=== PATIENT | female | born 1960 | race Caucasian/White ===

== ENCOUNTER 2020-03-11 06:44 | Outpatient (CLI) | payer BC, MEDICARE, SELFPAY ==
--- NOTE | ~2020-03-11 | CT_ITS ---
EXAMINATION: CT abdomen pelvis wo/w con DATE: 03/11/2020 07:50 INDICATION: Microscopic hematuria. TECHNIQUE: Computed tomography (CT) of the abdomen and pelvis was performed without and with intraven ous contrast using a total of 130 mL Omnipaque-350 intravenous contrast with a double-bolus technique for simultaneous opacification of the renal parenchyma and renal collecting system. Automated exposu re control and iterative reconstruction technique were employed. The dose-length product was 1428.91 mGy-cm. COMPARISON: CT abdomen and pelvis 02/21/2019 FINDINGS: The visualized portions of the lung bases demonstrate minimal atelectasis. Calcified right lung nodul es are consistent with old granulomatous disease. No pleural effusion. The heart size is normal. No p ericardial effusion. There is a chronic 1.6 cm mass in right hepatic lobe with interrupted peripheral puddling of contrast, consistent with a hemangioma. There are cysts in the liver measuring up to 5 m m. There are changes of cholecystectomy. The spleen, pancreas, and adrenal glands are normal. There i s no urolithiasis. There are cysts in the kidneys measuring up to 17 mm on the left. The ureters are well opacified and are normal. The bladder is not well distended. There is diverticulosis of the colo n without evidence of diverticulitis. The appendix is normal. There are no pathologically enlarged ly mph nodes. There is no free intraperitoneal fluid. There is calcified atherosclerosis of the aorta an d many of the other arteries. There are small bilateral inguinal hernias containing fat. There is an electrode in left S3 neural foramen. There are changes of anterior and posterior fusion procedures at L4-L5. Pedicle screws have been removed from S1. There is moderate lumbar spondylosis. IMPRESSION: 1. No etiology for hematuria. Reviewed, dictated and finalized at location B.
--- NOTE | ~2020-03-11 | XR_ITS ---
EXAMINATION: XR abdomen/kub 1V DATE: 03/11/2020 07:09 INDICATION: Microscopic hematuria. TECHNIQUE: A supine view of the abdomen on 2 radiographs was obtained. COMPARISON: CT abdomen and pelvis 03/11/2020 FINDINGS: There are no dilated loops of bowel. There is no urolithiasis. There are changes of anterio r and posterior fusion procedures at L4-L5. There is an electrode in left S3 neural foramen. There ar e phleboliths in the pelvis. IMPRESSION: 1. No urolithiasis. Reviewed, dictated and finalized at location B. IMPRESSION: 1. No urolithiasis.
[2020-03-11 07:27] LABS: Estimated Glomerular Filt Rate > 60
== END 2020-03-11 06:45 | disposition home or self-care (01) ==
PROVIDERS: Visit Provider Urology
DX: R31.29 Other microscopic hematuria (principal)
CPT/HCPCS: 74018; 74178; Q9967

== ENCOUNTER → 2020-05-02 07:16 | Outpatient (CLI) | payer BC, MEDICARE, SELFPAY ==
--- NOTE | ~2020-05-02 | MM_ITS ---
EXAMINATION: MM screening [facility] BI w david HISTORY: Screening mammogram TECHNIQUE: Craniocaudal and mediolateral oblique 3-D tomosynthesis images were obtained and synthetic 2-D images were generated. CAD analysis was submitted and interpreted. COMPARISON: 12/05/2018 bilateral digital screening mammogram 05/24/2017 and 11/21/2016 diagnostic left digital mammogram and limited left breast ultrasound 11/12/2016, 10/25/2015 bilateral digital screening mammogram examinations BREAST PARENCHYMAL COMPOSITION: There are scattered areas of fibroglandular density. FINDINGS: There is no evidence of suspicious mass, calcification, or architectural distortion to sugg est malignancy in either breast. There has been no suspicious interval change. IMPRESSION: 1. No mammographic evidence of malignancy. 2. Recommend routine screening mammography in one year. BI-RADS Category 1: Negative Reviewed, dictated and finalized at location A.
== END ==
PROVIDERS: PCP Family Medicine Sports Medicine; Visit Provider Obstetrics & Gynecology Gynecology
DX: Z12.31 Encounter for screening mammogram for malignant neoplasm of breast (principal)
CPT/HCPCS: 77063; 77067

== ENCOUNTER 2020-05-30 02:27 | Outpatient (CLI) | payer BC, MEDICARE, SELFPAY ==
[2020-05-30 21:22] LABS: SARS-CoV-2 RNA PCR Negative
== END 2020-05-30 02:28 | disposition home or self-care (01) ==
LOC: ANHCOVIDDT 02:28
PROVIDERS: PCP Family Medicine Sports Medicine; Visit Provider Internal Medicine Gastroenterology
DX: Z01.818 Encounter for other preprocedural examination (principal); Z20.828 Contact with and (suspected) exposure to other viral communicable diseases
CPT/HCPCS: 87635; C9803; U0003

== ENCOUNTER 2020-06-02 01:25 | Day surgery (SDC) | payer BC, MEDICARE, SELFPAY ==
[2020-05-26 14:58] VITALS: BMI 27.8
[2020-06-02 07:47] VITALS: BMI 28.9
[2020-06-02 07:51] VITALS: BP 133/73; PULSE 82; RESP 16; TEMP 36.2; O2SAT 99
[2020-06-02] MEDS: LACTATED RINGERS 1,000 ML 150 ML IV CONT (07:58)
--- NOTE | 2020-06-02 08:02 | PM.IMHP ---
H&P: HPI History of Present Illness Date/Time: 06/02/20 08:02 Chief complaint: GERD Narrative: Reason for visit is EGD. This very pleasant lady seen in consultation at the request of the primary physician. Impression: Here at very pleasant lady with a history of reflux disease and is status post Sharlene fundoplication. She does have upper abdominal pain. Evaluate for underlying peptic ulcer disease and reflux esophagitis. Patient reports rectal bleeding. This may be. This may be perianal in origin. Underlying inflammatory neoplastic disease should be excluded. Recommendation: EGD. Colonoscopy is scheduled. History: This very pleasant lady has a history peptic ulcer disease and gastroesophageal reflux disease. She is status post laparoscopic Sharlene fundoplication. The patient had been complaining of increasing upper abdominal pain and reflux. Since beginning the omeprazole and discontinue NSAIDs her symptoms have improved. She does report rectal bleeding of bright red blood per rectum. She has previously had an EGD and a colonoscopy in the past. She is here for EGD to assess for lying erosive esophagitis and peptic ulcer disease. Patient does have a history of COPD with shortness of breath and dyspnea exertion. Physical examination: General: very pleasant patient in no acute distress. HEENT: Head was normocephalic sclerae is clear mouth without masses neck was supple. Heart: Rate rhythm regular without S3 or S4. Lungs: Decreased breath sounds bilaterally. Abdomen: Soft with no guarding or rigidity. Bowel sounds were active. Neurologic: Cranial nerves 2 through 12 intact. No focal defects. No clonus. Musculoskeletal system: Revealed no joint tenderness or swelling no muscle atrophy. Extremities: Reveal no significant edema. Skin: Warm and dry with normal turgor. Mental status: intact. Patient is alert and oriented. Review of Systems Review of Systems: All systems reviewed & are unremarkable except as noted in HPI and below PMFSH Past Medical History Medical History Allergic rhinitis Asthma Asthma-COPD overlap syndrome Chronic sinusitis with recurrent bronchitis COPD (chronic obstructive pulmonary disease) DDD (degenerative disc disease) Deviated septum GERD (gastroesophageal reflux disease) History of tobacco use Surgical History Surgical History (Updated 06/02/20 @ 08:02 by Joseph Zimmerman DO) H/O colonoscopy H/O esophagogastroduodenoscopy History of Shalrene fundoplication History of sinus surgery History of total hysterectomy Social History Social History Smoking packs per day: 1 Smoking cigarettes per day: 20.0 Smoking status: Former smoker Smoking end date: 07/15/02 Alcohol intake: former Alcohol use details: 1-2 GLASSES PER WEEK NOW, FORMER DRINKER Substance use: never Substance use type: marijuana and other Other substance usage details: CBD OIL Last use: DAILY Living arrangements: with family Spiritual care concerns: No Meds Home Medications and Allergies Home Medications Medication Instructions Recorded Confirmed Type diphenhydramine HCl 12.5 mg/5 mL 12.5 mg PO Q8H PRN 03/23/20 06/02/20 History oral liquid albuterol sulfate 90 mcg/actuation 2 puff INHALATION Q4-6H PRN 30 03/24/20 06/02/20 Rx aerosol inhaler Days #8.5 gm fluticasone fur. 100 mcg-umeclid 1 inhalation INHALATION Q24H 03/24/20 06/02/20 Rx 62.5 mcg-vilant 25 mcg Days #60 each inhalat.powder fluticasone furoate 27.5 1 spray INTRANASAL DAILY PRN 90 05/17/20 06/02/20 Rx mcg/actuation nasal Days #47.4 ml spray,suspension fluticasone furoate 27.5 2 spray INTRANASAL DAILY 30 Days 05/19/20 06/02/20 Rx mcg/actuation nasal #9.1 ml spray,suspension PreserVision AREDS-2 2 tablet PO DAILY 05/26/20 06/02/20 History calcium carbonate-vitamin D3 2 tablet PO DAILY 05/26/20 06/02/20 History [Caltrate 600 plus D] conjugated estrogens [
--- NOTE | 2020-06-02 08:26 | WPDANESEPPF ---
Anes - Initial Pre Proc Eval Procedure: Operation Date: 06/02/20 09:00 Proposed Procedures p Esophagogastroduodenoscopy - Joseph Zimmerman DO Date/Time: 06/02/20 08:26 Surgeon: Joseph Zimmerman DO Pre Op Diagnosis: GERD Patient Data Age: 60 Gender: F Height: 5 ft 6 in Weight: 81.4 kg Last Vital Signs Temp 97.1 F L 06/02/20 07:51 Pulse 82 06/02/20 07:51 Resp 16 06/02/20 07:51 BP 133/73 06/02/20 07:51 Pulse Ox 99 06/02/20 07:51 Allergies Allergy/AdvReac Type Severity Reaction Status Date / Time codeine Allergy Unknown Itching Verified 06/02/20 07:46 Sulfa (Sulfonamide Allergy Unknown Itching Verified 06/02/20 07:46 Antibiotics) Home Medications Medication Instructions Recorded Confirmed Type diphenhydramine HCl 12.5 mg/5 mL 12.5 mg PO Q8H PRN 03/23/20 06/02/20 History oral liquid albuterol sulfate 90 mcg/actuation 2 puff INHALATION Q4-6H PRN 30 03/24/20 06/02/20 Rx aerosol inhaler Days #8.5 gm fluticasone fur. 100 mcg-umeclid 1 inhalation INHALATION Q24H 30 03/24/20 06/02/20 Rx 62.5 mcg-vilant 25 mcg Days #60 each inhalat.powder fluticasone furoate 27.5 1 spray INTRANASAL DAILY PRN 90 05/17/20 06/02/20 Rx mcg/actuation nasal Days #47.4 ml spray,suspension fluticasone furoate 27.5 2 spray INTRANASAL DAILY 30 Days 05/19/20 06/02/20 Rx mcg/actuation nasal #9.1 ml spray,suspension PreserVision AREDS-2 2 tablet PO DAILY 05/26/20 06/02/20 History calcium carbonate-vitamin D3 2 tablet PO DAILY 05/26/20 06/02/20 History [Caltrate 600 plus D] conjugated estrogens [Premarin] 1 applic VAGINAL DAILY 05/26/20 06/02/20 History gabapentin [Neurontin] 300 mg PO BID 05/26/20 06/02/20 History hydrochlorothiazide 12.5 mg PO DAILY 05/26/20 06/02/20 History magnesium carbonate 250 mg PO DAILY 05/26/20 06/02/20 History omeprazole 40 mg PO DAILY 05/26/20 06/02/20 History terbinafine 1 ea TOPICAL DAILY 05/26/20 06/02/20 History terbinafine HCl 250 mg PO DAILY 05/26/20 06/02/20 History valacyclovir 500 mg PO DAILY 05/26/20 06/02/20 History Patient hx anesthesia problems: none Family hx anesthesia problems: none [facility] Past Medical History Medical History Allergic rhinitis Asthma Asthma-COPD overlap syndrome Chronic sinusitis with recurrent bronchitis COPD (chronic obstructive pulmonary disease) DDD (degenerative disc disease) Deviated septum GERD (gastroesophageal reflux disease) History of tobacco use Surgical History Surgical History (Updated 06/02/20 @ 08:02 by Joseph Zimmerman DO) H/O colonoscopy H/O esophagogastroduodenoscopy History of Sharlene fundoplication History of sinus surgery History of total hysterectomy Social History Social History Smoking packs per day: 1 Smoking cigarettes per day: 20.0 Smoking status: Former smoker Smoking end date: 07/15/02 Alcohol intake: former Alcohol use details: 1-2 GLASSES PER WEEK NOW, FORMER DRINKER Substance use: never Substance use type: marijuana and other Other substance usage details: CBD OIL Last use: DAILY Living arrangements: with family Spiritual care concerns: No Anes - Eval Final PreProcedure Day of Procedure 06/02/20 08:26 Patient weight: overweight Heart: regular rate and rhythm Lungs: clear to auscultation Airway: Mallampati scale class II Neurological: alert and oriented Last oral intake: >/= 8 hours ASA classification: III Emergent: no Anesthetic plan: proceed Anesthesia type and monitoring: general GIVS and standard monitoring Informed Consent: The patient's anesthetic plan and its attendant risks and benefits were discussed with the patient/family/POA. Questions were solicited and answers provided to the satisfaction of the patient/family/POA.
[2020-06-02 08:52] VITALS: BP 103/54; PULSE 75; RESP 21; O2SAT 99
[2020-06-02 09:02] VITALS: BP 117/69; PULSE 78; RESP 20; O2SAT 99
[2020-06-02 09:12] VITALS: BP 128/75; PULSE 75; RESP 16; O2SAT 100
[2020-06-02 09:22] VITALS: BP 140/74; PULSE 72; RESP 17; O2SAT 100
== END 2020-06-02 09:30 | disposition home or self-care (01) ==
PROVIDERS: PCP Family Medicine Sports Medicine; Visit Provider Internal Medicine Gastroenterology
PROC: 0DJ08ZZ Inspection of Upper Intestinal Tract, Via Natural or Artificial Opening Endoscopic (ICD-10-PCS; CPT 43235; principal; 2020-06-02 09:00)
DX: R10.10 Upper abdominal pain, unspecified (principal); K21.9 Gastro-esophageal reflux disease without esophagitis; Z87.11 Personal history of peptic ulcer disease; Z98.84 Bariatric surgery status; J44.9 Chronic obstructive pulmonary disease, unspecified; Z87.891 Personal history of nicotine dependence; F12.90 Cannabis use, unspecified, uncomplicated
CPT/HCPCS: 43239; 87081; J2704; J7120

== ENCOUNTER 2020-06-20 01:56 | Outpatient (CLI) | payer BC, MEDICARE, SELFPAY ==
[2020-06-20 18:52] LABS: SARS-CoV-2 RNA PCR Negative
== END 2020-06-20 01:57 | disposition home or self-care (01) ==
LOC: ANHCOVIDDT 01:56
PROVIDERS: PCP Family Medicine Sports Medicine; Visit Provider Internal Medicine Gastroenterology
DX: Z01.818 Encounter for other preprocedural examination (principal); Z20.828 Contact with and (suspected) exposure to other viral communicable diseases
CPT/HCPCS: 87635; C9803; U0003

== ENCOUNTER 2020-06-23 00:17 | Day surgery (SDC) | payer BC, MEDICARE, SELFPAY ==
[2020-06-15 13:58] VITALS: BMI 28.4
--- NOTE | 2020-06-22 13:03 | WPDANESEPPF ---
Anes - Initial Pre Proc Eval Procedure: Operation Date: 06/23/20 09:00 Proposed Procedures p Colonoscopy - Joseph Zimmerman DO Date/Time: 06/22/20 13:03 Surgeon: Joseph Zimmerman DO Pre Op Diagnosis: IBS/ Constipation Patient Data Age: 60 Gender: F Height: 1.68 m Weight: 80 kg Allergies Allergy/AdvReac Type Severity Reaction Status Date / Time codeine Allergy Unknown Itching Verified 06/23/20 07:44 Sulfa (Sulfonamide Allergy Unknown Itching Verified 06/23/20 07:44 Antibiotics) Home Medications Medication Instructions Recorded Confirmed Type diphenhydramine HCl 12.5 mg/5 mL 12.5 mg PO Q8H PRN 03/23/20 06/15/20 History oral liquid albuterol sulfate 90 mcg/actuation 2 puff INHALATION Q4-6H PRN 30 03/24/20 06/23/20 Rx aerosol inhaler Days #8.5 gm fluticasone fur. 100 mcg-umeclid 1 inhalation INHALATION Q24H 30 03/24/20 06/23/20 Rx 62.5 mcg-vilant 25 mcg Days #60 each inhalat.powder fluticasone furoate 27.5 2 spray INTRANASAL DAILY 30 Days 05/19/20 06/23/20 Rx mcg/actuation nasal #9.1 ml spray,suspension PreserVision AREDS-2 2 tablet PO DAILY 05/26/20 06/23/20 History calcium carbonate-vitamin D3 2 tablet PO DAILY 05/26/20 06/23/20 History [Caltrate 600 plus D] conjugated estrogens [Premarin] 1 applic VAGINAL DAILY 05/26/20 06/15/20 History gabapentin [Neurontin] 300 mg PO BID 05/26/20 06/23/20 History hydrochlorothiazide 12.5 mg PO DAILY 05/26/20 06/23/20 History magnesium carbonate 250 mg PO DAILY 05/26/20 06/23/20 History omeprazole 40 mg PO DAILY 05/26/20 06/23/20 History terbinafine 1 ea TOPICAL DAILY 05/26/20 06/15/20 History terbinafine HCl 250 mg PO DAILY 05/26/20 06/15/20 History valacyclovir 500 mg PO DAILY 05/26/20 06/15/20 History Cbd Oil DAILY 06/15/20 History acetaminophen [Tylenol] 650 mg PO Q4-6H PRN 06/15/20 06/15/20 History denosumab [Prolia] 60 mg SUBCUT [id number] 06/15/20 06/15/20 History loratadine [Claritin] 10 mg PO DAILY PRN 06/15/20 06/23/20 History multivitamin [Daily Multivitamin] 1 tablet PO DAILY 06/15/20 06/23/20 History Patient hx anesthesia problems: none Family hx anesthesia problems: none PMFSH Past Medical History Medical History (Updated 06/22/20 @ 13:05 by John Welsh MD) Allergic rhinitis Asthma Asthma-COPD overlap syndrome Bipolar 1 disorder Chronic sinusitis with recurrent bronchitis COPD (chronic obstructive pulmonary disease) DDD (degenerative disc disease) Depression Deviated septum GERD (gastroesophageal reflux disease) History of tobacco use HTN (hypertension) LUIZ (obstructive sleep apnea) Surgical History Surgical History (Updated 06/02/20 @ 08:02 by Joseph Zimmerman DO) H/O colonoscopy H/O esophagogastroduodenoscopy History of Sharlene fundoplication History of sinus surgery History of total hysterectomy Social History Social History Smoking packs per day: 1 Smoking cigarettes per day: 20.0 Smoking status: Former smoker Smoking end date: 07/15/02 Alcohol intake: former Substance use: never Substance use type: marijuana and other Other substance usage details: CBD OIL Last use: DAILY Living arrangements: with family Spiritual care concerns: No Anes - Eval Final PreProcedure Day of Procedure 06/22/20 13:03 Patient weight: obese Heart: regular rate and rhythm Lungs: clear to auscultation and normal air movement Airway: Mallampati scale class II Neurological: alert and oriented Last oral intake: >/= 8 hours ASA classification: III Emergent: no Anesthetic plan: proceed Anesthesia type and monitoring: general GIVS Informed Consent: The patient's anesthetic plan and its attendant risks and benefits were discussed with the patient/family/POA. Questions were solicited and answers provided to the satisfaction of the patient/family/POA.
[2020-06-23 07:39] VITALS: BP 120/69; PULSE 99; RESP 22; TEMP 36.8; O2SAT 100; BMI 28.3
[2020-06-23 07:47] VITALS: BMI 28.3
[2020-06-23] MEDS: LACTATED RINGERS 1,000 ML 150 ML IV CONT (07:55)
--- NOTE | 2020-06-23 09:22 | WPDHPUPDATE1 ---
History and Physical Update Update Date/Time: 06/23/20 09:22 History and Physical has been reviewed, including an updated exam of the patient. There are NO changes in the patient's condition. Risks, benefits, and alternatives have been discussed and questions answered. Patient agrees to proceed with procedure.
--- NOTE | 2020-06-23 09:48 | SUR.OPER ---
RESOLUTION CLIP X6. LOT [id number] EXP , LOT [id number] EXP LOT [id number] EXP (X4)
[2020-06-23 10:12] VITALS: BP 112/65; PULSE 81; RESP 19; O2SAT 96
[2020-06-23 10:22] VITALS: BP 126/65; PULSE 82; RESP 27; O2SAT 100
[2020-06-23 10:32] VITALS: BP 100/65; PULSE 73; RESP 15; O2SAT 100
== END 2020-06-23 10:47 | disposition home or self-care (01) ==
PROVIDERS: PCP Family Medicine Sports Medicine; Visit Provider Internal Medicine Gastroenterology
PROC: 0DJD8ZZ Inspection of Lower Intestinal Tract, Via Natural or Artificial Opening Endoscopic (ICD-10-PCS; CPT 45378; principal; 2020-06-23 09:00)
DX: K57.30 Diverticulosis of large intestine without perforation or abscess without bleeding (principal); D12.4 Benign neoplasm of descending colon; D12.2 Benign neoplasm of ascending colon; K64.8 Other hemorrhoids; K58.2 Mixed irritable bowel syndrome; I10 Essential (primary) hypertension; J44.9 Chronic obstructive pulmonary disease, unspecified; G47.33 Obstructive sleep apnea (adult) (pediatric); K21.9 Gastro-esophageal reflux disease without esophagitis; F31.9 Bipolar disorder, unspecified; Z87.891 Personal history of nicotine dependence; F12.90 Cannabis use, unspecified, uncomplicated; E66.9 Obesity, unspecified; Z68.28 Body mass index [BMI] 28.0-28.9, adult
CPT/HCPCS: 45380; 45385; 88305; J2704; J7120

== ENCOUNTER 2020-07-25 08:10 | Outpatient (CLI) | payer BC, MEDICARE, SELFPAY ==
--- NOTE | ~2020-07-25 | CT_ITS ---
EXAMINATION: CT abdomen pelvis w con INDICATION: Adenomatous polyp of the colon TECHNIQUE: Computed tomographic images of the abdomen and pelvis were obtained after the administrati on of 100 cc of Omnipaque 350 intravenous contrast. The dose-length product (DLP) was 601.46 mGy-cm. Automated exposure control and iterative reconstruction technique were employed. COMPARISON: 03/11/2020 FINDINGS: The lung bases are clear. The heart size is normal. The gallbladder is surgically absent. A 1.6 cm hemangioma is noted in the right hepatic lobe. Cysts of the liver measure up to 5 mm. The spl een, pancreas, and adrenal glands are normal. There is a 1.7 cm cyst of the left kidney. The right ki dney is unremarkable. There is calcified atherosclerosis of the aorta and many of the other arteries. There is no free intraperitoneal gas or evidence of bowel obstruction. No pathologically enlarged ab dominal or pelvic lymph nodes are identified. Biopsy clips are noted at the hepatic flexure and in th e ascending colon. The appendix is normal. There are changes of anterior and posterior fusion at L4-5 . A bone graft harvest site is noted in the right sacrum. IMPRESSION: 1. Postbiopsy changes of the colon without acute findings. Reviewed, dictated and finalized at location A. [employer]ICAL SERVICES REPRESENTATIVE
[2020-07-25 08:47] LABS: Estimated Glomerular Filt Rate > 60
== END 2020-07-25 08:11 | disposition home or self-care (01) ==
PROVIDERS: PCP Family Medicine Sports Medicine; Visit Provider Internal Medicine Gastroenterology
DX: D12.5 Benign neoplasm of sigmoid colon (principal); R10.9 Unspecified abdominal pain
CPT/HCPCS: 74177; Q9967

== ENCOUNTER → 2020-08-20 01:04 | Outpatient (CLI) | payer BC, MEDICARE, SELFPAY ==
[2020-08-21 00:21] LABS: SARS-CoV-2 RNA PCR Negative
== END ==
PROVIDERS: PCP Family Medicine Sports Medicine; Visit Provider Internal Medicine Gastroenterology
DX: Z01.812 Encounter for preprocedural laboratory examination (principal); Z20.822 Contact with and (suspected) exposure to COVID-19
CPT/HCPCS: C9803; U0003; U0005

== ENCOUNTER 2020-08-24 00:31 | Day surgery (SDC) | payer BC, MEDICARE, SELFPAY ==
[2020-08-04 14:26] VITALS: BMI 28.3
[2020-08-24 10:41] VITALS: BP 109/57; PULSE 98; RESP 16; TEMP 36.6; O2SAT 100
[2020-08-24] MEDS: LACTATED RINGERS 1,000 ML 150 ML IV CONT (10:48)
--- NOTE | 2020-08-24 10:55 | WPDANESEPPF ---
Anes - Initial Pre Proc Eval Procedure: Operation Date: 08/24/20 12:00 Proposed Procedures p Colonoscopy - Joseph Zimmerman DO Date/Time: 08/24/20 10:55 Surgeon: Joseph Zimmerman DO Pre Op Diagnosis: Adenomas Polyp Of Colon, Abdomnal Pain Patient Data Age: 60 Gender: F Height: 5 ft 6 in Weight: 78.6 kg Last Vital Signs Temp 36.6 C 08/24/20 10:41 Pulse 98 08/24/20 10:41 Resp 16 08/24/20 10:41 BP 109/57 L 08/24/20 10:41 Pulse Ox 100 08/24/20 10:41 Allergies Allergy/AdvReac Type Severity Reaction Status Date / Time codeine Allergy Unknown Itching Verified 08/24/20 10:37 Sulfa (Sulfonamide Allergy Unknown Itching Verified 08/24/20 10:37 Antibiotics) Home Medications Medication Instructions Recorded Confirmed Type diphenhydramine HCl 12.5 mg/5 mL 12.5 mg PO Q8H PRN 03/23/20 08/24/20 History oral liquid albuterol sulfate 90 mcg/actuation 2 puff INHALATION Q4-6H PRN 30 03/24/20 08/24/20 Rx aerosol inhaler Days #8.5 gm fluticasone fur. 100 mcg-umeclid 1 inhalation INHALATION Q24H 30 03/24/20 08/24/20 Rx 62.5 mcg-vilant 25 mcg Days #60 each inhalat.powder fluticasone furoate 27.5 2 spray INTRANASAL DAILY 30 Days 05/19/20 08/24/20 Rx mcg/actuation nasal #9.1 ml spray,suspension PreserVision AREDS-2 2 tablet PO DAILY 05/26/20 08/24/20 History calcium carbonate-vitamin D3 2 tablet PO DAILY 05/26/20 08/24/20 History [Caltrate 600 plus D] conjugated estrogens [Premarin] 1 applic VAGINAL WEEKLY 05/26/20 08/24/20 History gabapentin [Neurontin] 300 mg PO BID 05/26/20 08/24/20 History hydrochlorothiazide 12.5 mg PO DAILY 05/26/20 08/24/20 History magnesium carbonate 250 mg PO DAILY 05/26/20 08/24/20 History omeprazole 40 mg PO DAILY 05/26/20 08/24/20 History terbinafine 1 ea TOPICAL DAILY 05/26/20 08/24/20 History terbinafine HCl 250 mg PO DAILY 05/26/20 08/24/20 History valacyclovir 500 mg PO DAILY 05/26/20 08/24/20 History Cbd Oil DAILY 06/15/20 History acetaminophen [Tylenol] 650 mg PO Q4-6H PRN 06/15/20 08/24/20 History denosumab [Prolia] 60 mg SUBCUT [id number] 06/15/20 08/24/20 History loratadine [Claritin] 10 mg PO DAILY PRN 06/15/20 08/24/20 History multivitamin [Daily Multivitamin] 1 tablet PO DAILY 06/15/20 08/24/20 History Patient hx anesthesia problems: none Family hx anesthesia problems: none PMFSH Past Medical History Medical History Allergic rhinitis Asthma Asthma-COPD overlap syndrome Bipolar 1 disorder Chronic sinusitis with recurrent bronchitis COPD (chronic obstructive pulmonary disease) DDD (degenerative disc disease) Depression Deviated septum GERD (gastroesophageal reflux disease) History of tobacco use HTN (hypertension) LUIZ (obstructive sleep apnea) Surgical History Surgical History H/O colonoscopy H/O esophagogastroduodenoscopy History of Sharlene fundoplication History of sinus surgery History of total hysterectomy Social History Social History Smoking packs per day: 1 Smoking cigarettes per day: 20.0 Years smoked: 32 Smoking pack-years: 32.00 Smoking status: Former smoker Tobacco type: cigarettes Smoking end date: 07/15/02 Alcohol intake: former Substance use: never Substance use type: marijuana and other Other substance usage details: CBD OIL Last use: DAILY Living arrangements: with family Gender identity (if verbalized by the patient): Female Spiritual care concerns: No Anes - Eval Final PreProcedure Day of Procedure 08/24/20 10:55 Patient weight: overweight Heart: regular rate and rhythm Lungs: clear to auscultation Airway: Mallampati scale class II Neurological: alert and oriented Last oral intake: >/= 8 hours ASA classification: IV Emergent: no Anesthetic plan: proceed Anesthesia type and monitoring: general GIVS and standard manish
--- NOTE | 2020-08-24 12:12 | WPDGICN ---
GI Consult Note Consult date/time: 08/24/20 12:12 HPI: Reason for visit is colonoscopy. This very pleasant lady seen in consultation request of the primary physician. Impression: Very pleasant lady has a history of multiple adenomatous polyps. She is here for follow-up colonoscopy to assess the need for further polypectomy. She does have a large polyp that needs to be excised. Recommendation: Colonoscopy. History: This very pleasant lady has multiple adenomatous polyps. She underwent multiple polypectomies. A 1.5-2 cm polyp is Still requiring removal. She is here for follow-up colonoscopy. GI review systems is negative. Physical examination: General: very pleasant patient in no acute distress. HEENT: Head was normocephalic sclerae is clear mouth without masses neck was supple. Heart: Rate rhythm regular without S3 or S4. Lungs: CTA. Abdomen: Soft with no guarding or rigidity. Bowel sounds were active. Neurologic: Cranial nerves 2 through 12 intact. No focal defects. No clonus. Musculoskeletal system: Revealed no joint tenderness or swelling no muscle atrophy. Extremities: Reveal no significant edema. Skin: Warm and dry with normal turgor. Mental status: intact. Patient is alert and oriented. Review of Systems Review of Systems: All systems reviewed & are unremarkable except as noted in HPI and below PMFSH Past Medical History Medical History (Updated 08/24/20 @ 12:14 by Joseph Zimmerman DO) Adenomatous colon polyp Allergic rhinitis Asthma Asthma-COPD overlap syndrome Bipolar 1 disorder Chronic sinusitis with recurrent bronchitis COPD (chronic obstructive pulmonary disease) DDD (degenerative disc disease) Depression Deviated septum GERD (gastroesophageal reflux disease) History of tobacco use HTN (hypertension) LUIZ (obstructive sleep apnea) Surgical History Surgical History H/O colonoscopy H/O esophagogastroduodenoscopy History of Sharlene fundoplication History of sinus surgery History of total hysterectomy Social History Social History Smoking packs per day: 1 Smoking cigarettes per day: 20.0 Years smoked: 32 Smoking pack-years: 32.00 Smoking status: Former smoker Tobacco type: cigarettes Smoking end date: 07/15/02 Alcohol intake: former Substance use: never Substance use type: marijuana and other Other substance usage details: CBD OIL Last use: DAILY Living arrangements: with family Gender identity (if verbalized by the patient): Female Spiritual care concerns: No Meds Home Medications and Allergies Home Medications Medication Instructions Recorded Confirmed Type diphenhydramine HCl 12.5 mg/5 mL 12.5 mg PO Q8H PRN 03/23/20 08/24/20 History oral liquid albuterol sulfate 90 mcg/actuation 2 puff INHALATION Q4-6H PRN 03/24/20 08/24/20 Rx aerosol inhaler Days #8.5 gm fluticasone fur. 100 mcg-umeclid 1 inhalation INHALATION Q24H 30 03/24/20 08/24/20 Rx 62.5 mcg-vilant 25 mcg Days #60 each inhalat.powder fluticasone furoate 27.5 2 spray INTRANASAL DAILY 30 Days 05/19/20 08/24/20 Rx mcg/actuation nasal #9.1 ml spray,suspension PreserVision AREDS-2 2 tablet PO DAILY 05/26/20 08/24/20 History calcium carbonate-vitamin D3 2 tablet PO DAILY 05/26/20 08/24/20 History [Caltrate 600 plus D] conjugated estrogens [Premarin] 1 applic VAGINAL WEEKLY 05/26/20 08/24/20 History gabapentin [Neurontin] 300 mg PO BID 05/26/20 08/24/20 History hydrochlorothiazide 12.5 mg PO DAILY 05/26/20 08/24/20 History magnesium carbonate 250 mg PO DAILY 05/26/20 08/24/20 History omeprazole 40 mg PO DAILY 05/26/20 08/24/20 History terbinafine 1 ea TOPICAL DAILY 05/26/20 08/24/20 History terbinafine HCl 250 mg PO DAILY 05/26/20 08/24/20 History valacyclovir 500 mg PO DAILY 05/26/20 08/24/20 History Cbd Oil DAILY 06/15/20 History acetamin
[2020-08-24 13:14] VITALS: BP 115/66; PULSE 80; RESP 21; O2SAT 100
[2020-08-24 13:24] VITALS: BP 117/67; PULSE 69; RESP 22; O2SAT 100
[2020-08-24 13:34] VITALS: BP 123/63; PULSE 70; RESP 21; O2SAT 98
== END 2020-08-24 13:55 | disposition home or self-care (01) ==
PROVIDERS: PCP Family Medicine Sports Medicine; Visit Provider Internal Medicine Gastroenterology
PROC: 0DJD8ZZ Inspection of Lower Intestinal Tract, Via Natural or Artificial Opening Endoscopic (ICD-10-PCS; CPT 45378; principal; 2020-08-24 12:00)
DX: Z09 Encounter for follow-up examination after completed treatment for conditions other than malignant neoplasm (principal); D12.4 Benign neoplasm of descending colon; D12.2 Benign neoplasm of ascending colon; D12.3 Benign neoplasm of transverse colon; K63.5 Polyp of colon; K64.8 Other hemorrhoids; I10 Essential (primary) hypertension; J44.9 Chronic obstructive pulmonary disease, unspecified; F31.9 Bipolar disorder, unspecified; K21.9 Gastro-esophageal reflux disease without esophagitis; G47.33 Obstructive sleep apnea (adult) (pediatric); Z87.891 Personal history of nicotine dependence; F12.90 Cannabis use, unspecified, uncomplicated
CPT/HCPCS: 45385; 45381; 88305; J2704; J7120

== ENCOUNTER 2020-09-14 11:26 | Outpatient (CLI) | payer BC, MEDICARE, SELFPAY ==
--- NOTE | ~2020-09-14 | XR_ITS ---
EXAMINATION: XR chest 2V DATE: 09/14/2020 13:28 INDICATION: Shortness of breath. TECHNIQUE: Frontal and lateral views of the chest were obtained. COMPARISON: Chest 2 views 08/30/2010, CT abdomen and pelvis 07/25/2020 FINDINGS: A calcified right lung nodule is consistent with old granulomatous disease. No pleural effu kristen or pneumothorax. The heart size is normal. There are surgical clips in the abdomen. IMPRESSION: 1. No acute cardiopulmonary disease. Reviewed, dictated and finalized at location A. D DIRECTOR
== END 2020-09-14 11:27 | disposition home or self-care (01) ==
LOC: ANHIMG 11:35
PROVIDERS: PCP Family Medicine Sports Medicine; Visit Provider Nurse Practitioner Family
DX: R06.02 Shortness of breath (principal)
CPT/HCPCS: 71046

== ENCOUNTER → 2020-09-15 06:56 | Outpatient (CLI) | payer BC, MEDICARE, SELFPAY ==
[2020-09-15 23:26] LABS: SARS-CoV-2 RNA PCR Negative
== END ==
PROVIDERS: PCP Family Medicine Sports Medicine; Visit Provider Nurse Practitioner Family
DX: R68.89 Other general symptoms and signs (principal); Z20.822 Contact with and (suspected) exposure to COVID-19
CPT/HCPCS: C9803; U0003; U0005

== ENCOUNTER → 2021-06-10 09:45 | Outpatient (CLI) | payer BC, MEDICARE, SELFPAY ==
--- NOTE | ~2021-06-10 | MM_ITS ---
EXAMINATION: MM screening salomon BI w david HISTORY: Screening mammogram TECHNIQUE: Craniocaudal and mediolateral oblique 3-D tomosynthesis images were obtained and synthetic 2-D images were generated. CAD analysis was submitted and interpreted. COMPARISON: 05/02/2020, 12/01/2018 bilateral screening mammogram examinations BREAST PARENCHYMAL COMPOSITION: There are scattered areas of fibroglandular density. FINDINGS: There is no evidence of suspicious mass, calcification, or architectural distortion to sugg est malignancy in either breast. There has been no suspicious interval change. IMPRESSION: 1. No mammographic evidence of malignancy. 2. Recommend routine screening mammography in one year. BI-RADS Category 1: Negative Reviewed, dictated and finalized at location A. FIC COUNTER
--- NOTE | ~2021-06-10 | DEXA_ITS ---
Bone Density Report Name: NIKI CHAND Age: 61 Sex: Female Ethnicity: White Date of : 1960 Indication: osteopenia; monitoring treatment; parental hip fracture; asthma or emphysema; hysterectomy; postmenopausal Referring Provider: MARCELA MCCURDY Study: Bone densitometry was performed. Exam Date: June 10, 2021 Accession number: [id number] Bone Density: Region BMD T-score Z-score Classification AP Spine (L1, L2, L3) 1.080 0.6 2.0 Normal Femoral Neck (Left) 0.670 -1.6 -0.3 Osteopenia Total Hip (Left) 0.850 -0.8 0.3 Normal Femoral Neck (Right) 0.698 -1.4 0.0 Osteopenia Total Hip (Right) 0.816 -1.0 0.0 Normal Total Hip Mean 0.833 -0.9 0.2 Normal World Health Organization criteria for BMD impression classify patients as: Normal (T-score at or above -1.0), Osteopenia (T-score between -1.0 and -2.5), or Osteoporosis (T-score at or below -2.5). 10-year Fracture Risk: FRAX not reported because: Treated for osteoporosis Previous Exams: Region Exam Age BMD T-score BMD Change BMD Change Date g/cm2 vs Baseline vs Previous AP Spine(L1, L2, L3) 06/10/2021 61 1.080 0.6 0.041* 0.041* 12/05/2018 58 1.039 0.2 Total Hip(Left) 06/10/2021 61 0.850 -0.8 -0.022 0.028* 12/05/2018 58 0.822 -1.0 -0.050* -0.055* 10/22/2014 54 0.877 -0.5 0.005 0.005 02/22/2012 51 0.872 -0.6 Total Hip(Right) 06/10/2021 61 0.816 -1.0 -0.003 0.051* 12/05/2018 58 0.765 -1.5 -0.053* -0.056* 10/22/2014 54 0.821 -1.0 0.003 0.003 02/22/2012 51 0.818 -1.0 *Denotes significance at 95% confidence level, LSC for AP Spine = 0.022 g/cm2, LSC for Total Hip = 0.027 g/cm2 Clinical Information Provided by Patient: Parent has had a hip fracture Is being treated for osteoporosis Has used the following medications: Prolia (i.e. denosumab), Vitamin D, Calcium, MTV Has the following medical conditions: Asthma or Emphysema, Hysterectomy Patient maximum height was 67.0 Menopause Age: 30 Drinks caffeinated beverages Onset of menses at age 14 Number of children 3 Impression: The patient has low bone mass, based on the Left Femoral Neck T-score. The patient has risk factors, including: parental hip fracture. No significant bone loss was observed. Discussion: PATIENT UNDER TREATMENT WITH NO SIGNIFICANT BMD LOSS SINCE LAST EXAM
== END ==
PROVIDERS: PCP Family Medicine Sports Medicine; Visit Provider Obstetrics & Gynecology Gynecology
DX: Z12.31 Encounter for screening mammogram for malignant neoplasm of breast (principal); Z78.0 Asymptomatic menopausal state; M85.852 Other specified disorders of bone density and structure, left thigh; M85.851 Other specified disorders of bone density and structure, right thigh
CPT/HCPCS: 77063; 77067; 77080

== ENCOUNTER 2021-09-13 00:06 | Day surgery (SDC) | payer BC, MEDICARE, SELFPAY ==
[2021-08-30 13:40] VITALS: BMI 27.0
[2021-09-13 08:03] VITALS: BP 128/69; PULSE 78; RESP 18; TEMP 36.2; O2SAT 100; BMI 27.6
[2021-09-13] MEDS: LACTATED RINGERS 1,000 ML 150 ML IV CONT (08:29)
--- NOTE | 2021-09-13 08:53 | WPDANESEPPF ---
Anes - Initial Pre Proc Eval Procedure: Operation Date: 09/13/21 09:30 Proposed Procedures p Screening Colonoscopy - Nicholas Betancourt MD Date/Time: 09/13/21 08:53 Surgeon: Nicholas Betancourt MD Pre Op Diagnosis: hx of colon polyps Patient Data Age: 61 Gender: F Height: 1.68 m Weight: 77.7 kg Last Vital Signs Temp 97.1 F L 09/13/21 08:03 Pulse 78 09/13/21 08:03 Resp 18 09/13/21 08:03 BP 128/69 09/13/21 08:03 Pulse Ox 100 09/13/21 08:03 Allergies Allergy/AdvReac Type Severity Reaction Status Date / Time codeine Allergy Unknown Itching Verified 09/13/21 08:16 Sulfa (Sulfonamide Allergy Unknown Itching Verified 09/13/21 08:16 Antibiotics) Home Medications Medication Instructions Recorded Confirmed Type diphenhydramine HCl 12.5 mg/5 mL 12.5 mg PO Q8H PRN 03/23/20 09/13/21 History oral liquid albuterol sulfate 90 mcg/actuation 2 puff INHALATION Q4-6H PRN 30 03/24/20 09/13/21 Rx aerosol inhaler Days #8.5 gm fluticasone furoate 27.5 2 spray INTRANASAL DAILY 30 Days 05/19/20 09/13/21 Rx mcg/actuation nasal #9.1 ml spray,suspension PreserVision AREDS-2 2 tablet PO DAILY 05/26/20 09/13/21 History calcium carbonate-vitamin D3 2 tablet PO DAILY 05/26/20 09/13/21 History [Caltrate 600 plus D] conjugated estrogens [Premarin] 1 applic VAGINAL WEEKLY 05/26/20 09/13/21 History gabapentin [Neurontin] 300 mg PO BID PRN 05/26/20 09/13/21 History hydrochlorothiazide 12.5 mg PO DAILY 05/26/20 09/13/21 History magnesium carbonate 250 mg PO DAILY 05/26/20 09/13/21 History terbinafine 1 ea TOPICAL DAILY 05/26/20 06/06/21 History terbinafine HCl 250 mg PO DAILY 05/26/20 06/06/21 History valacyclovir 500 mg PO DAILY 05/26/20 09/13/21 History Cbd Oil DAILY 06/15/20 06/06/21 History acetaminophen [Tylenol] 650 mg PO Q4-6H PRN 06/15/20 09/13/21 History denosumab [Prolia] 60 mg SUBCUT [id number] 06/15/20 09/13/21 History multivitamin [Daily Multivitamin] 1 tablet PO DAILY 06/15/20 09/13/21 History montelukast 10 mg tablet 10 mg PO QHS 90 Days #90 tablet 10/06/20 09/13/21 Rx fluticasone fur. 100 mcg-umeclid 1 inh INHALATION Q24H 30 Days #60 02/08/21 09/13/21 Rx 62.5 mcg-vilant 25 mcg each inhalat.powder ascorbic acid (vitamin C) [Vitamin 500 mg PO DAILY 08/30/21 09/13/21 History C] aspirin 81 mg PO DAILY 08/30/21 09/13/21 History cholecalciferol (vitamin D3) 25 mcg PO DAILY 08/30/21 09/13/21 History [Vitamin D3] rosuvastatin [Crestor] 10 mg PO DAILY 08/30/21 09/13/21 History zinc gluconate 50 mg PO DAILY 08/30/21 09/13/21 History Patient hx anesthesia problems: none Family hx anesthesia problems: none Results Review: All pre-operative results and documents have been reviewed as part of the pre-operative evaluation. [facility] Past Medical History Medical History Adenomatous colon polyp Allergic rhinitis Asthma Asthma-COPD overlap syndrome Bipolar 1 disorder Chronic sinusitis with recurrent bronchitis COPD (chronic obstructive pulmonary disease) DDD (degenerative disc disease) Depression Deviated septum GERD (gastroesophageal reflux disease) History of tobacco use HTN (hypertension) LUIZ (obstructive sleep apnea) Surgical History Surgical History H/O colonoscopy H/O esophagogastroduodenoscopy History of Sharlene fundoplication History of sinus surgery History of total hysterectomy Social History Social History Smoking packs per day: 1 Smoking cigarettes per day: 20.0 Years smoked: 30 Smoking pack-years: 30.00 Smoking status: Former smoker Tobacco type: cigarettes Smoking end date: 07/15/03 Alcohol intake: former Alcohol use details: 1-2 GLASSES PER WEEK NOW, FORMER DRINKER Substance use: never Substance use type: marijuana and other Other substance usage details: CBD OIL
--- NOTE | 2021-09-13 09:15 | PM.HPGS ---
History of Present Illness History of Present Illness Consent: Risks, benefits, and alternatives have been discussed and questions answered. Patient agrees to proceed with procedure. Chief complaint: hx of colon polyps Narrative: Claire Royal is a 61 year old female with multiple TA adenoma removed in piece-meal fashion, she was told that going forward will need colonoscopies every year Review of Systems Constitutional: Constitutional: Denies headache(s) and Denies weakness Eyes: Eyes: Denies blurry vision ENT: Reports Normal hearing present, Denies headache(s) and Denies neck pain Cardiovascular: Cardiovascular: Denies chest pain and Denies dyspnea Respiratory: Respiratory: Denies dyspnea Gastrointestinal: Gastrointestinal: Reports no additional gastrointestinal complaints Genitourinary: Genitourinary: Denies dysuria Musculoskeletal: Musculoskeletal: Denies neck pain Integumentary/Breasts: Skin/Breast: Denies dry skin Neurologic: Reports Normal hearing present, Denies headache(s) and Denies weakness Psychiatric: Psychiatric: Denies anxiety Endocrine: Endocrine: Denies change in body appearance Hematologic/Lymphatic: Hematologic/Lymphatic: Denies easy bleeding Allergic/Immunologic: Allergic/Immunologic: Denies urticaria PMF Past Medical History Medical History (Updated 09/13/21 @ 09:16 by Nicholas Betancourt MD) Adenomatous colon polyp Allergic rhinitis Asthma Asthma-COPD overlap syndrome Bipolar 1 disorder Chronic sinusitis with recurrent bronchitis COPD (chronic obstructive pulmonary disease) DDD (degenerative disc disease) Depression Deviated septum GERD (gastroesophageal reflux disease) History of tobacco use HTN (hypertension) LUIZ (obstructive sleep apnea) Surgical History Surgical History H/O colonoscopy H/O esophagogastroduodenoscopy History of Sharlene fundoplication History of sinus surgery History of total hysterectomy Social History Social History Smoking packs per day: 1 Smoking cigarettes per day: 20.0 Years smoked: 30 Smoking pack-years: 30.00 Smoking status: Former smoker Tobacco type: cigarettes Smoking end date: 07/15/03 Alcohol intake: former Alcohol use details: 1-2 GLASSES PER WEEK NOW, FORMER DRINKER Substance use: never Substance use type: marijuana and other Other substance usage details: CBD OIL Last use: DAILY Living arrangements: with family Gender identity (if verbalized by the patient): Female Spiritual care concerns: No Meds Home Medications and Allergies Home Medications Medication Instructions Recorded Confirmed Type diphenhydramine HCl 12.5 mg/5 mL 12.5 mg PO Q8H PRN 03/23/20 09/13/21 History oral liquid albuterol sulfate 90 mcg/actuation 2 puff INHALATION Q4-6H PRN 30 03/24/20 09/13/21 Rx aerosol inhaler Days #8.5 gm fluticasone furoate 27.5 2 spray INTRANASAL DAILY 30 Days 05/19/20 09/13/21 Rx mcg/actuation nasal #9.1 ml spray,suspension PreserVision AREDS-2 2 tablet PO DAILY 05/26/20 09/13/21 History calcium carbonate-vitamin D3 2 tablet PO DAILY 05/26/20 09/13/21 History [Caltrate 600 plus D] conjugated estrogens [Premarin] 1 applic VAGINAL WEEKLY 05/26/20 09/13/21 History gabapentin [Neurontin] 300 mg PO BID PRN 05/26/20 09/13/21 History hydrochlorothiazide 12.5 mg PO DAILY 05/26/20 09/13/21 History magnesium carbonate 250 mg PO DAILY 05/26/20 09/13/21 History terbinafine 1 ea TOPICAL DAILY 05/26/20 06/06/21 History terbinafine HCl 250 mg PO DAILY 05/26/20 06/06/21 History valacyclovir 500 mg PO DAILY 05/26/20 09/13/21 History Cbd Oil DAILY 06/15/20 06/06/21 History acetaminophen [Tylenol] 650 mg PO Q4-6H PRN 06/15/20 09/13/21 History denosumab [Prolia] 60 mg SUBCUT [id number] 06/15/20 09/13/21 History multivitamin [Daily Multivitamin] 1 tablet PO DAILY 06/15/20 09/13/21 History
[2021-09-13 09:49] VITALS: BP 117/53; PULSE 71; RESP 26; O2SAT 97
[2021-09-13 09:59] VITALS: BP 107/92; PULSE 69; RESP 30; O2SAT 100
[2021-09-13 10:09] VITALS: BP 104/64; PULSE 75; RESP 25; O2SAT 100
== END 2021-09-13 10:19 | disposition home or self-care (01) ==
PROVIDERS: PCP Family Medicine Sports Medicine; Visit Provider Internal Medicine Gastroenterology
PROC: 0DJD8ZZ Inspection of Lower Intestinal Tract, Via Natural or Artificial Opening Endoscopic (ICD-10-PCS; CPT 45378; principal; 2021-09-13 09:30)
DX: Z09 Encounter for follow-up examination after completed treatment for conditions other than malignant neoplasm (principal); D12.2 Benign neoplasm of ascending colon; D12.3 Benign neoplasm of transverse colon; K63.5 Polyp of colon; K57.30 Diverticulosis of large intestine without perforation or abscess without bleeding; J44.9 Chronic obstructive pulmonary disease, unspecified; F31.9 Bipolar disorder, unspecified; K21.9 Gastro-esophageal reflux disease without esophagitis; I10 Essential (primary) hypertension; G47.33 Obstructive sleep apnea (adult) (pediatric); F12.90 Cannabis use, unspecified, uncomplicated; Z87.891 Personal history of nicotine dependence; Z79.51 Long term (current) use of inhaled steroids
CPT/HCPCS: 45385; 45380; 88305; J2704; J7120

== ENCOUNTER → 2022-07-28 07:40 | Outpatient (CLI) | payer BC, MEDICARE, SELFPAY ==
--- NOTE | ~2022-07-28 | MM_ITS ---
EXAMINATION: MM screening salomon BI w david HISTORY: Screening mammogram TECHNIQUE: Craniocaudal and mediolateral oblique 3-D tomosynthesis images were obtained and synthetic 2-D images were generated. CAD analysis was submitted and interpreted. COMPARISON: 06/10/2021, 05/02/2020, 12/01/2018 bilateral screening mammogram examinations BREAST PARENCHYMAL COMPOSITION: There are scattered areas of fibroglandular density. FINDINGS: There is no evidence of suspicious mass, calcification, or architectural distortion to sugg est malignancy in either breast. There has been no suspicious interval change. IMPRESSION: 1. No mammographic evidence of malignancy. 2. Recommend routine screening mammography in one year. BI-RADS Category 1: Negative Reviewed, dictated and finalized at location A. CH MAKER
== END ==
PROVIDERS: Visit Provider Obstetrics & Gynecology Gynecology
DX: Z12.31 Encounter for screening mammogram for malignant neoplasm of breast (principal)
CPT/HCPCS: 77063; 77067

== ENCOUNTER 2022-09-11 09:27 | Outpatient (CLI) | payer BC, MEDICARE, SELFPAY ==
--- NOTE | ~2022-09-11 | XR_ITS ---
AP and lateral views of the sacrum/coccyx CLINICAL HISTORY: Bladder stimulator, status post fall FINDINGS: Urinary bladder stimulator is in place, unchanged in positioning as compared to prior CT da fritz 07/25/2020. Lumbosacral spinal fixation hardware is present. There is degenerative change of both SI joints. Bilateral hip joints appear intact. Calcified pelvic phleboliths are present. No other sof t tissue abnormality seen. IMPRESSION: No appreciable change in urinary bladder stimulator as compared to prior CT from 07/25/2020. Lumbosacral spinal fixation hardware and fusion. Reviewed, dictated and finalized at location M. ULTANT INTERN IMPRESSION: No appreciable change in urinary bladder stimulator as compared to prior CT fro m 07/25/2020. Lumbosacral spinal fixation hardware and fusion.
== END 2022-09-11 09:28 | disposition home or self-care (01) ==
PROVIDERS: Visit Provider Nurse Practitioner Family
DX: N32.81 Overactive bladder (principal); Z98.1 Arthrodesis status
CPT/HCPCS: 72220

== ENCOUNTER 2022-10-02 00:50 | Day surgery (SDC) | payer BC, MEDICARE, SELFPAY ==
[2022-09-14 13:58] VITALS: BMI 27.6
[2022-10-02 12:55] VITALS: BP 135/70; PULSE 96; RESP 18; TEMP 36.6; O2SAT 98
[2022-10-02] MEDS: LACTATED RINGERS 1,000 ML 150 ML IV CONT (13:09)
--- NOTE | 2022-10-02 13:46 | WPDANESEPPF ---
Anes - Initial Pre Proc Eval Procedure: Operation Date: 10/02/22 14:15 Proposed Procedures p Screening Colonoscopy - Nicholas Betancourt MD Date/Time: 10/02/22 13:46 Surgeon: Nicholas Betancourt MD Pre Op Diagnosis: hx colon polyps, neoplasm screening Patient Data Age: 62 Gender: F Height: 1.68 m Weight: 77.8 kg Last Vital Signs Temp 97.8 F 10/02/22 12:55 Pulse 96 10/02/22 12:55 Resp 18 10/02/22 12:55 BP 135/70 10/02/22 12:55 Pulse Ox 98 10/02/22 12:55 O2 Del Method Room Air 10/02/22 12:55 Allergies Allergy/AdvReac Type Severity Reaction Status Date / Time codeine Allergy Unknown Itching Verified 10/02/22 12:54 Sulfa (Sulfonamide Allergy Unknown Itching Verified 10/02/22 12:54 Antibiotics) Home Medications Medication Instructions Recorded Confirmed Type diphenhydramine HCl 12.5 mg/5 mL 12.5 mg PO Q8H PRN Sinus Symptoms 03/23/20 09/14/22 History oral liquid (Benadryl Allergy) albuterol sulfate 90 mcg/actuation 2 puff inhalation Q4-6H PRN 03/24/20 09/14/22 Rx aerosol inhaler (ProAir HFA) shortness of breath or wheezing 1 month #8.5 grams fluticasone furoate 27.5 2 spray intranasal DAILY nasal 05/19/20 09/14/22 Rx mcg/actuation nasal allergy 1 month #9.1 mL spray,suspension PreserVision AREDS-2 2 tablet PO DAILY 05/26/20 09/14/22 History calcium carbonate 600 mg-vitamin 2 tablet PO DAILY 05/26/20 09/14/22 History D3 20 mcg (800 unit) chewable tablet (Caltrate 600 plus D) conjugated estrogens 0.625 mg/gram 1 applic vaginal WEEKLY 05/26/20 09/14/22 History vaginal cream (Premarin) gabapentin 300 mg capsule 300 mg PO BID PRN Pain 05/26/20 09/14/22 History (Neurontin) hydrochlorothiazide 12.5 mg capsule 12.5 mg PO DAILY 05/26/20 09/14/22 History magnesium carbonate 250 mg capsule 250 mg PO DAILY 05/26/20 09/14/22 History terbinafine 1 % topical gel 1 ea topical DAILY 05/26/20 09/14/22 History terbinafine HCl 250 mg tablet 250 mg PO DIRECTED 05/26/20 09/14/22 History valacyclovir 500 mg tablet 500 mg PO DAILY 05/26/20 09/14/22 History acetaminophen 325 mg capsule 650 mg PO Q4-6H PRN Pain 06/15/20 09/14/22 History (Tylenol) multivitamin 1 tablet PO DAILY 06/15/20 09/14/22 History ascorbic acid (vitamin C) 500 mg 500 mg PO DAILY 08/30/21 09/14/22 History capsule,extended release (Vitamin C) aspirin 81 mg capsule 81 mg PO DAILY 08/30/21 09/14/22 History cholecalciferol (vitamin D3) 25 25 mcg PO DAILY 08/30/21 09/14/22 History mcg (1,000 unit) chewable tablet (Vitamin D3) rosuvastatin 10 mg tablet (Crestor) 10 mg PO DAILY 08/30/21 09/14/22 History zinc gluconate 50 mg tablet 50 mg PO DAILY 08/30/21 09/14/22 History montelukast 10 mg tablet 10 mg PO QHS #7 tabs 12/04/21 09/14/22 Rx fluticasone fur. 100 mcg-umeclid 1 inh inhalation Q24H 1 month #60 02/07/22 09/14/22 Rx 62.5 mcg-vilant 25 mcg ea inhalat.powder (Trelegy Ellipta) Patient hx anesthesia problems: none Family hx anesthesia problems: none Results Review: All pre-operative results and documents have been reviewed as part of the pre-operative evaluation. [facility] Past Medical History Medical History Adenomatous colon polyp Allergic rhinitis Asthma Asthma-COPD overlap syndrome Bipolar 1 disorder Chronic sinusitis with recurrent bronchitis COPD (chronic obstructive pulmonary disease) DDD (degenerative disc disease) Depression Deviated septum GERD (gastroesophageal reflux disease) History of tobacco use HTN (hypertension) LUIZ (obstructive sleep apnea) Surgical History Surgical History H/O colonoscopy H/O esophagogastroduodenoscopy History of Sharlene fundoplication History of sinus surgery History of total hysterectomy Social History Social History Smoking packs per day: 1 Smoking
--- NOTE | 2022-10-02 13:58 | PM.HPGS ---
History of Present Illness History of Present Illness Consent: Risks, benefits, and alternatives have been discussed and questions answered. Patient agrees to proceed with procedure. Chief complaint: hx colon polyps, neoplasm screening Narrative: Claire Royal is a 62 year old female with multiple TA polyps removed 2021 Review of Systems Constitutional: Constitutional: Denies headache(s) and Denies weakness Eyes: Eyes: Denies blurry vision ENT: Reports Normal hearing present, Denies headache(s) and Denies neck pain Cardiovascular: Cardiovascular: Denies chest pain and Denies dyspnea Respiratory: Respiratory: Denies dyspnea Gastrointestinal: Gastrointestinal: Reports no additional gastrointestinal complaints Genitourinary: Genitourinary: Denies dysuria Musculoskeletal: Musculoskeletal: Denies neck pain Integumentary/Breasts: Skin/Breast: Denies dry skin Neurologic: Reports Normal hearing present, Denies headache(s) and Denies weakness Psychiatric: Psychiatric: Denies anxiety Endocrine: Endocrine: Denies change in body appearance Hematologic/Lymphatic: Hematologic/Lymphatic: Denies easy bleeding Allergic/Immunologic: Allergic/Immunologic: Denies urticaria PMFSH Past Medical History Medical History Adenomatous colon polyp Allergic rhinitis Asthma Asthma-COPD overlap syndrome Bipolar 1 disorder Chronic sinusitis with recurrent bronchitis COPD (chronic obstructive pulmonary disease) DDD (degenerative disc disease) Depression Deviated septum GERD (gastroesophageal reflux disease) History of tobacco use HTN (hypertension) LUIZ (obstructive sleep apnea) Surgical History Surgical History H/O colonoscopy H/O esophagogastroduodenoscopy History of Sharlene fundoplication History of sinus surgery History of total hysterectomy Social History Social History Smoking packs per day: 1 Smoking cigarettes per day: 20.0 Years smoked: 30 Smoking pack-years: 30.00 Smoking status: Former smoker Tobacco type: cigarettes Smoking end date: 07/15/03 Alcohol intake: current Alcohol use details: occasional Substance use: never Substance use type: marijuana and other Other substance usage details: CBD OIL Last use: DAILY Living arrangements: with family Gender identity (if verbalized by the patient): Female Spiritual care concerns: No Meds Home Medications and Allergies Home Medications Medication Instructions Recorded Confirmed Type diphenhydramine HCl 12.5 mg/5 mL 12.5 mg PO Q8H PRN Sinus Symptoms 03/23/20 09/14/22 History oral liquid (Benadryl Allergy) albuterol sulfate 90 mcg/actuation 2 puff inhalation Q4-6H PRN 03/24/20 09/14/22 Rx aerosol inhaler (ProAir HFA) shortness of breath or wheezing 1 month #8.5 grams fluticasone furoate 27.5 2 spray intranasal DAILY nasal 05/19/20 09/14/22 Rx mcg/actuation nasal allergy 1 month #9.1 mL spray,suspension PreserVision AREDS-2 2 tablet PO DAILY 05/26/20 09/14/22 History calcium carbonate 600 mg-vitamin 2 tablet PO DAILY 05/26/20 09/14/22 History D3 20 mcg (800 unit) chewable tablet (Caltrate 600 plus D) conjugated estrogens 0.625 mg/gram 1 applic vaginal WEEKLY 05/26/20 09/14/22 History vaginal cream (Premarin) gabapentin 300 mg capsule 300 mg PO BID PRN Pain 05/26/20 09/14/22 History (Neurontin) hydrochlorothiazide 12.5 mg capsule 12.5 mg PO DAILY 05/26/20 09/14/22 History magnesium carbonate 250 mg capsule 250 mg PO DAILY 05/26/20 09/14/22 History terbinafine 1 % topical gel 1 ea topical DAILY 05/26/20 09/14/22 History terbinafine HCl 250 mg tablet 250 mg PO DIRECTED 05/26/20 09/14/22 History valacyclovir 500 mg tablet 500 mg PO DAILY 05/26/20 09/14/22 History acetaminophen 325 mg capsule 650 mg PO Q4-6H PRN Pain 06/15/20 09/14/22 Histor
[2022-10-02 14:19] VITALS: BP 122/53; PULSE 72; RESP 20; O2SAT 99
[2022-10-02 14:29] VITALS: BP 114/57; PULSE 78; RESP 22; O2SAT 99
[2022-10-02 14:39] VITALS: BP 107/60; PULSE 74; RESP 20; O2SAT 99
== END 2022-10-02 14:51 | disposition home or self-care (01) ==
PROVIDERS: PCP Family Medicine Sports Medicine; Visit Provider Internal Medicine Gastroenterology
PROC: 0DJD8ZZ Inspection of Lower Intestinal Tract, Via Natural or Artificial Opening Endoscopic (ICD-10-PCS; CPT 45378; principal; 2022-10-02 14:15)
DX: Z09 Encounter for follow-up examination after completed treatment for conditions other than malignant neoplasm (principal); K57.30 Diverticulosis of large intestine without perforation or abscess without bleeding; K64.8 Other hemorrhoids; Z86.010 Personal history of colon polyps; I10 Essential (primary) hypertension; J44.9 Chronic obstructive pulmonary disease, unspecified; F31.9 Bipolar disorder, unspecified; G47.33 Obstructive sleep apnea (adult) (pediatric); K21.9 Gastro-esophageal reflux disease without esophagitis; Z87.891 Personal history of nicotine dependence; Z79.51 Long term (current) use of inhaled steroids; Z79.82 Long term (current) use of aspirin
CPT/HCPCS: 45378; J2704; J7120

== ENCOUNTER 2023-01-14 08:26 | Emergency (ER) | payer BC, MEDICARE, SELFPAY ==
--- NOTE | ~2023-01-14 | XR_ITS ---
EXAMINATION: XR ankle RT min 3V DATE: 01/14/2023 09:06 INDICATION: Lateral sided right ankle pain post fall TECHNIQUE: Anteroposterior, oblique, mortise, and lateral views of the right ankle were obtained. COMPARISON: None. FINDINGS: Alignment is normal. No fracture. Joint spaces are well maintained. No ankle joint effusion. Soft t issue swelling about the lateral malleolus. IMPRESSION: 1. No osseous abnormality. Reviewed, dictated and finalized at location D. IMPRESSION: 1. No osseous abnormality.
[2023-01-14 08:36] VITALS: BP 155/92; PULSE 80; RESP 17; TEMP 36.6; O2SAT 99
--- NOTE | 2023-01-14 09:18 | ED.FALL ---
HPI - Fall General Chief Complaint: Fall Stated Complaint: R ankle pain Time Seen by Provider: 01/14/23 08:38 History of Present Illness HPI Narrative: Patient is a 62-year-old female who presents ER with right ankle pain. She was walking down her steps while she took her dog out to use restroom and was looking at some tomato plants when she twisted her ankle. Sudden onset pain. She has developed swelling and bruising. She still has pain with bearing weight but is able to walk. She walks with a limp. She did not strike her head or lose consciousness. She did fall on her left side and has some pain in her shoulder but has normal range of motion. Pain is better with rest and ice. Related Data Home Medications Medication Instructions Recorded Confirmed diphenhydramine HCl 12.5 mg/5 mL 12.5 mg PO Q8H PRN Sinus Symptoms 03/23/20 09/14/22 oral liquid (Benadryl Allergy) PreserVision AREDS-2 2 tablet PO DAILY 05/26/20 09/14/22 calcium carbonate 600 mg-vitamin 2 tablet PO DAILY 05/26/20 09/14/22 D3 20 mcg (800 unit) chewable tablet (Caltrate 600 plus D) conjugated estrogens 0.625 mg/gram 1 applic vaginal WEEKLY 05/26/20 09/14/22 vaginal cream (Premarin) gabapentin 300 mg capsule 300 mg PO BID PRN Pain 05/26/20 09/14/22 (Neurontin) hydrochlorothiazide 12.5 mg capsule 12.5 mg PO DAILY 05/26/20 09/14/22 magnesium carbonate 250 mg capsule 250 mg PO DAILY 05/26/20 09/14/22 terbinafine 1 % topical gel 1 ea topical DAILY 05/26/20 09/14/22 terbinafine HCl 250 mg tablet 250 mg PO DIRECTED 05/26/20 09/14/22 valacyclovir 500 mg tablet 500 mg PO DAILY 05/26/20 09/14/22 acetaminophen 325 mg capsule 650 mg PO Q4-6H PRN Pain 06/15/20 09/14/22 (Tylenol) multivitamin 1 tablet PO DAILY 06/15/20 09/14/22 ascorbic acid (vitamin C) 500 mg 500 mg PO DAILY 08/30/21 09/14/22 capsule,extended release (Vitamin C) aspirin 81 mg capsule 81 mg PO DAILY 08/30/21 09/14/22 cholecalciferol (vitamin D3) 25 25 mcg PO DAILY 08/30/21 09/14/22 mcg (1,000 unit) chewable tablet (Vitamin D3) rosuvastatin 10 mg tablet (Crestor) 10 mg PO DAILY 08/30/21 09/14/22 zinc gluconate 50 mg tablet 50 mg PO DAILY 08/30/21 09/14/22 Allergies Allergy/AdvReac Type Severity Reaction Status Date / Time codeine Allergy Unknown Itching Verified 01/14/23 08:46 Sulfa (Sulfonamide Allergy Unknown Itching Verified 01/14/23 08:46 Antibiotics) Review of Systems Review of Systems: All systems reviewed & are unremarkable except as noted in HPI and below Musculoskeletal: Musculoskeletal: Reports arthralgias, Reports joint swelling and Denies muscle cramps Neurologic: Denies syncope, Denies focal weakness and Denies numbness PMFSH Past Medical History Medical History Adenomatous colon polyp Allergic rhinitis Asthma Asthma-COPD overlap syndrome Bipolar 1 disorder Chronic sinusitis with recurrent bronchitis COPD (chronic obstructive pulmonary disease) DDD (degenerative disc disease) Depression Deviated septum GERD (gastroesophageal reflux disease) History of tobacco use HTN (hypertension) LUIZ (obstructive sleep apnea) Surgical History Surgical History H/O colonoscopy H/O esophagogastroduodenoscopy History of Sharlene fundoplication History of sinus surgery History of total hysterectomy Social History Social History Smoking packs per day: 1 Smoking cigarettes per day: 20.0 Years smoked: 30 Smoking pack-years: 30.00 Smoking status: Former smoker Tobacco type: cigarettes Smoking end date: 07/15/03 Alcohol intake: current Alcohol use details: occasional Substance use: never Substance use type: marijuana and other Other substance usage details: CBD OIL Last use: DAILY Living arrangements: with family Gender identity (if verbalized by the patient): Female S
== END 2023-01-14 09:58 | disposition home or self-care (01) ==
PROVIDERS: Emergency Provider Emergency Medicine; PCP Family Medicine Sports Medicine
DX: S93.401A Sprain of unspecified ligament of right ankle, initial encounter (principal); J44.9 Chronic obstructive pulmonary disease, unspecified; I10 Essential (primary) hypertension; K21.9 Gastro-esophageal reflux disease without esophagitis; G47.33 Obstructive sleep apnea (adult) (pediatric); Z86.010 Personal history of colon polyps; Z87.891 Personal history of nicotine dependence; Z79.82 Long term (current) use of aspirin; W10.9XXA Fall (on) (from) unspecified stairs and steps, initial encounter; Y93.K1 Activity, walking an animal
CPT/HCPCS: 73610; 99283

== ENCOUNTER → 2023-08-21 12:25 | Outpatient (CLI) | payer BC, MEDICARE, SELFPAY ==
--- NOTE | ~2023-08-21 | MM_ITS ---
EXAMINATION: MM screening salomon BI w david HISTORY: Screening mammogram TECHNIQUE: Craniocaudal and mediolateral oblique 3-D tomosynthesis images were obtained and synthetic 2-D images were generated. CAD analysis was submitted and interpreted. COMPARISON: 07/28/2022, 06/10/2021, 05/02/2020 bilateral screening mammogram examinations BREAST PARENCHYMAL COMPOSITION: There are scattered areas of fibroglandular density. FINDINGS: There is no evidence of suspicious mass, calcification, or architectural distortion to sugg est malignancy in either breast. There has been no suspicious interval change compared to 05/02/2020. IMPRESSION: 1. No mammographic evidence of malignancy. 2. Recommend routine screening mammography in one year. BI-RADS Category 1: Negative Reviewed, dictated and finalized at location A. MING MACHINE SET UP OPERATOR
== END ==
PROVIDERS: PCP Obstetrics & Gynecology Gynecology; Visit Provider Obstetrics & Gynecology Gynecology
DX: Z12.31 Encounter for screening mammogram for malignant neoplasm of breast (principal)
CPT/HCPCS: 77063; 77067

== ENCOUNTER 2023-09-25 12:40 | Emergency (ER) | payer BC, MEDICARE, SELFPAY ==
[2023-09-25] VITALS (14 sets, daily range): BP systolic 135–153; BP diastolic 63–82; PULSE 82–102; RESP 14–30; O2SAT 96–100
--- NOTE | ~2023-09-25 | XR_ITS ---
EXAMINATION: XR chest 1V portable DATE: 09/25/2023 13:13 INDICATION: Upper respiratory infection. TECHNIQUE: A single frontal view of the chest was obtained. COMPARISON: Chest 2 views 09/14/2020 FINDINGS: There is no pneumonia, pleural effusion, or pneumothorax. The heart size is normal. Surgica l clips in the right upper quadrant are likely from cholecystectomy. IMPRESSION: 1. No acute cardiopulmonary disease. Reviewed, dictated and finalized at location A.
[2023-09-25] MEDS: ALBUTEROL SULFATE NEB 2.5 MG/3 ML INH 15 MG INHALATION (13:20)
[2023-09-25] MEDS: IPRATROPIUM BR 0.02% INH SOLN 0.5 MG/2.5 ML VIAL 1 MG INHALATION (13:20)
[2023-09-25 13:48] LABS: Influenza A QL RT-PCR Negative (Negative); Influenza B QL RT-PCR Negative (Negative); RSV RNA, RT-PCR Positive (Negative); SARS-CoV-2 RNA PCR Negative (Negative)
--- NOTE | 2023-09-25 14:05 | ED.URI ---
HPI - URI/Sore Throat General Chief Complaint: Upper Respiratory Infection Stated Complaint: I need a cxr I have pneumonia Time Seen by Provider: 09/25/23 12:43 History of Present Illness HPI Narrative: Patient with history of COPD presents here concerned that she has pneumonia, she has been having a cough and congestion for a week, has seen her primary care doctor who put her on antibiotics and steroids, and she is still not feeling better. Related Data Home Medications Medication Instructions Recorded Confirmed diphenhydramine HCl 12.5 mg/5 mL 12.5 mg PO Q8H PRN Sinus Symptoms 03/23/20 09/14/22 oral liquid (Benadryl Allergy) PreserVision AREDS-2 2 tablet PO DAILY 05/26/20 09/14/22 calcium carbonate 600 mg-vitamin 2 tablet PO DAILY 05/26/20 09/14/22 D3 20 mcg (800 unit) chewable tablet (Caltrate 600 plus D) conjugated estrogens 0.625 mg/gram 1 applic vaginal WEEKLY 05/26/20 09/14/22 vaginal cream (Premarin) gabapentin 300 mg capsule 300 mg PO BID PRN Pain 05/26/20 09/14/22 (Neurontin) hydrochlorothiazide 12.5 mg capsule 12.5 mg PO DAILY 05/26/20 09/14/22 magnesium carbonate 250 mg capsule 250 mg PO DAILY 05/26/20 09/14/22 terbinafine 1 % topical gel 1 ea topical DAILY 05/26/20 09/14/22 terbinafine HCl 250 mg tablet 250 mg PO DIRECTED 05/26/20 09/14/22 valacyclovir 500 mg tablet 500 mg PO DAILY 05/26/20 09/14/22 acetaminophen 325 mg capsule 650 mg PO Q4-6H PRN Pain 06/15/20 09/14/22 (Tylenol) multivitamin 1 tablet PO DAILY 06/15/20 09/14/22 ascorbic acid (vitamin C) 500 mg 500 mg PO DAILY 08/30/21 09/14/22 capsule,extended release (Vitamin C) aspirin 81 mg capsule 81 mg PO DAILY 08/30/21 09/14/22 cholecalciferol (vitamin D3) 25 25 mcg PO DAILY 08/30/21 09/14/22 mcg (1,000 unit) chewable tablet (Vitamin D3) rosuvastatin 10 mg tablet (Crestor) 10 mg PO DAILY 08/30/21 09/14/22 zinc gluconate 50 mg tablet 50 mg PO DAILY 08/30/21 09/14/22 Allergies Allergy/AdvReac Type Severity Reaction Status Date / Time codeine Allergy Unknown Itching Verified 09/25/23 12:52 Sulfa (Sulfonamide Allergy Unknown Itching Verified 09/25/23 12:52 Antibiotics) Review of Systems Review of Systems: CONST: No fever. HEENT: Congestion C/V: No chest pain RESP: Cough GI: No nausea or vomiting : No dysuria. M/S: No joint pain. SKIN: No rash. NEURO: [No headache or focal numbness or weakness] PSYCH: [No depression] [facility] Past Medical History Medical History Adenomatous colon polyp Allergic rhinitis Asthma Asthma-COPD overlap syndrome Bipolar 1 disorder Chronic sinusitis with recurrent bronchitis COPD (chronic obstructive pulmonary disease) DDD (degenerative disc disease) Depression Deviated septum GERD (gastroesophageal reflux disease) History of tobacco use HTN (hypertension) LUIZ (obstructive sleep apnea) Surgical History Surgical History H/O colonoscopy H/O esophagogastroduodenoscopy History of Sharlene fundoplication History of sinus surgery History of total hysterectomy Social History Social History Smoking packs per day: 1 Smoking cigarettes per day: 20.0 Years smoked: 30 Smoking pack-years: 30.00 Smoking status: Former smoker Tobacco type: cigarettes Smoking end date: 07/15/03 Alcohol intake: current Alcohol use details: occasional Substance use: never Substance use type: marijuana and other Other substance usage details: CBD OIL Last use: DAILY Living arrangements: with family Gender identity (if verbalized by the patient): Female Spiritual care concerns: No Exam Narrative: EXAMINATION OF ORGAN SYSTEMS/BODY AREAS: Constitutional: Vital signs per nursing GENERAL:[No acute distress, non-toxic appearing.] HEAD: Normal with no signs of head trauma. EYES: EOMI, conjunctiva normal
== END 2023-09-25 14:22 | disposition home or self-care (01) ==
PROVIDERS: Emergency Provider Emergency Medicine; PCP Family Medicine
DX: J20.5 Acute bronchitis due to respiratory syncytial virus (principal); Z20.822 Contact with and (suspected) exposure to COVID-19; Z87.891 Personal history of nicotine dependence; J45.909 Unspecified asthma, uncomplicated; F32.A Depression, unspecified; K21.9 Gastro-esophageal reflux disease without esophagitis; I10 Essential (primary) hypertension; G47.30 Sleep apnea, unspecified
CPT/HCPCS: 71045; 87637; 94640; 99283

== ENCOUNTER 2023-10-09 11:53 | Outpatient (CLI) | payer BC, MEDICARE, SELFPAY ==
--- NOTE | ~2023-10-09 | DEXA_ITS ---
Bone Density Report Name: NIKI CHAND Age: 63 Sex: Female Ethnicity: White Date of : 1960 Indication: monitoring treatment; parental hip fracture; prior fracture; asthma or emphysema; hysterectomy; postmenopausal Referring Provider: FRANNIE CASILLAS Study: Bone densitometry was performed. Exam Date: October 09, 2023 Accession number: [id number] Bone Density: Region BMD T-score Z-score Classification AP Spine (L1, L2, L3) 1.129 1.0 2.6 Normal Femoral Neck (Left) 0.679 -1.5 -0.1 Osteopenia Total Hip (Left) 0.844 -0.8 0.3 Normal Femoral Neck (Right) 0.661 -1.7 -0.3 Osteopenia Total Hip (Right) 0.770 -1.4 -0.3 Osteopenia Total Hip Mean 0.807 -1.1 0.0 Osteopenia World Health Organization criteria for BMD impression classify patients as: Normal (T-score at or above -1.0), Osteopenia (T-score between -1.0 and -2.5), or Osteoporosis (T-score at or below -2.5). 10-year Fracture Risk: FRAX not reported because: Treated for osteoporosis Previous Exams: Region Exam Age BMD T-score BMD Change BMD Change Date g/cm2 vs Baseline vs Previous AP Spine(L1, L2, L3) 10/09/2023 63 1.129 1.0 0.090* 0.049* 06/10/2021 61 1.080 0.6 0.041* 0.041* 12/05/2018 58 1.039 0.2 Total Hip(Left) 10/09/2023 63 0.844 -0.8 -0.028* -0.006 06/10/2021 61 0.850 -0.8 -0.022 0.028* 12/05/2018 58 0.822 -1.0 -0.050* -0.055* 10/22/2014 54 0.877 -0.5 0.005 0.005 02/22/2012 51 0.872 -0.6 Total Hip(Right) 10/09/2023 63 0.770 -1.4 -0.049* -0.046* 06/10/2021 61 0.816 -1.0 -0.003 0.051* 12/05/2018 58 0.765 -1.5 -0.053* -0.056* 10/22/2014 54 0.821 -1.0 0.003 0.003 02/22/2012 51 0.818 -1.0 *Denotes significance at 95% confidence level, LSC for AP Spine = 0.022 g/cm2, LSC for Total Hip = 0.027 g/cm2 Clinical Information Provided by Patient: Has had a low trauma fracture Parent has had a hip fracture Is being treated for osteoporosis Has used the following medications: Vitamin D, MTV Has the following medical conditions: Asthma or Emphysema, Hysterectomy Patient maximum height was 67.0 Menopause Age: 30 Drinks caffeinated beverages Onset of menses at age 14 Number of children 3 Impression: The patient has low bone mass, based on the Right Femoral Neck T
== END 2023-10-09 11:54 ==
PROVIDERS: Visit Provider Advanced Practice Midwife
DX: Z78.0 Asymptomatic menopausal state (principal); M85.852 Other specified disorders of bone density and structure, left thigh; M85.851 Other specified disorders of bone density and structure, right thigh
CPT/HCPCS: 77080

== ENCOUNTER 2023-12-12 10:56 | Emergency (ER) | payer BC, MEDICARE, SELFPAY ==
--- NOTE | ~2023-12-12 | CT_ITS ---
EXAMINATION: CT abdomen pelvis w con DATE: 12/12/2023 12:27 INDICATION: Blood in stool. Constipation. TECHNIQUE: Computed tomography (CT) of the abdomen and pelvis was performed with 100 mL Omnipaque 350 intravenous contrast. Automated exposure control and iterative reconstruction technique were employe d. The dose-length product was 513.14 mGy-cm. COMPARISON: CT abdomen and pelvis 07/25/2020 FINDINGS: The visualized portions of the lung bases demonstrate mild atelectasis. No pleural effusion . The heart size is normal. No pericardial effusion. There are coronary artery calcifications. Again seen is a 2.1 cm mass in right hepatic lobe, consistent with a hemangioma. There are cysts in the nick er measuring up to 7 mm. There are changes of cholecystectomy. The spleen, pancreas, adrenal glands, and right kidney are normal. There are cysts in left kidney measuring up to 1.9 cm. Aortic atheroscle rosis is noted. There are scattered diverticula in the colon. There is fat stranding around the sigmo id colon with wall thickening of the sigmoid colon, consistent with diverticulitis. There is trace pe lvic ascites. The appendix is normal. There are no dilated loops of bowel. There are no pathologicall y enlarged lymph nodes. There is an electrode in left S3 neural foramen. There are changes of anterio r and posterior fusion procedures at L4-L5. There is interbody fusion at L5-S1. There is severe lumba r spondylosis. IMPRESSION: 1. Acute sigmoid diverticulitis. No perforation or abscess. Reviewed, dictated and finalized at location A.
[2023-12-12 11:06] VITALS: BP 134/74; PULSE 84; RESP 14; TEMP 36.5; O2SAT 99
[2023-12-12 11:16] VITALS: BP 124/69; PULSE 82; RESP 17; O2SAT 97
[2023-12-12 11:44] LABS: Basophils Percent Auto 0.3 % (0.2-1.2); Eosinophils Absolute Auto 0.1 K/mm3 (0-0.3); Eosinophils Percent Auto 0.8 % (0-4.4); Hematocrit 38.9 % (37.0-47.0); Hemoglobin 13.3 g/dL (12.0-15.0); Immature Granulocyte Absolute 0.02 K/mm3 (0.00-0.031); Immature Granulocyte Percent A 0.2 % (0-0.5); Lymphocytes Absolute Auto 1.89 K/mm3 (0.9-3.2); Lymphocytes Percent Auto 21.5 % (18.3-44.2); Mean Corpuscular HGB Conc 34.2 g/dl (32-36); Mean Corpuscular Hemoglobin 30.7 pg (26-34); Mean Corpuscular Volume 89.8 fl (80-100); Mean Platelet Volume 9.4 fl (7.4-10.4); Monocytes Absolute Auto 0.7 K/mm3 (0.1-0.6); Monocytes Percent Auto 8.2 % (2.6-8.5); Neutrophils Absolute Auto 6.1 K/mm3 (1.3-6.7); Platelet Count Result 218 k/mm3 (150-375); Red Blood Count 4.33 M/mm3 (4.2-5.4); White Blood Count 8.8 K/mm3 (4.5-10.0)
[2023-12-12 11:51] LABS: Appearance Urine Cloudy (Clear); Bacteria Urine 1+ /hpf; Bilirubin Urine Negative (Negative); Blood Urine 3+ (Negative); Color Urine Dark Yellow (Yellow); Glucose Urine UA Negative (Negative); Ketones Urine 2+ mg/dL (Negative); Leukocyte Esterase Ur Trace LEU/UL (Negative); Nitrate Urine Negative (Negative); Non Pathogenic Casts 0-2; Protein Urine Trace mg/dL (Negative); Specific Grav Ur 1.024 (1.001-1.035); Squamous Epithelial Cell Urine Moderate /hpf (Few); WBC Urine 0-5 /hpf (0-3)
[2023-12-12 11:57] LABS: Alanine Aminotransferase 15 U/L (6-35); Albumin Level 4.5 g/dL (3.5-5.1); Alkaline Phosphatase 77 U/L (38-126); Anion Gap 7 mmol/L (4-12); Aspartate Amino Transferase 22 U/L (14-36); Bilirubin,Total 1.7 mg/dL (0.2-1.3); Blood Urea Nitrogen 9 mg/dL (7-17); Calcium 9.1 mg/dL (8.4-10.2); Carbon Dioxide 25 mmol/L (22-30); Chloride 104 mmol/L (98-107); Estimated CRCL calculation 90 ml/min; Estimated Glomerular Filt Rate > 60; Glucose 106 mg/dL (65-110); Lipase 65 U/L (23-300); Potassium 3.3 mmol/L (3.4-5.0); Sodium 136 mmol/L (137-145)
--- NOTE | 2023-12-12 12:01 | ED.ABDPAIN ---
HPI - Abdominal Pain General Chief Complaint: Abdominal Pain Stated Complaint: sent from PCP for abdominal pain Time Seen by Provider: 12/12/23 11:48 Source: patient Mode of arrival: ambulatory Limitations: no limitations History of Present Illness HPI narrative: Patient sent from her GI clinic appointment where she was seen by the FILTER PRESS OPERATOR in Dr Betancourt's office. Hx of benign adenomas previously requiring yearly colonoscopies but last performed in 09/2022 and told it could be every 3 years due to stable conditions. She has been experiencing abdominal pain. Initially had constipation for which she took multiple OTC medications including DUcolax and magnesium citrate. This produced watery bowel movement but she still has pain. She has been taking ibuprofen. Also prescribed Crestor but not taking that. Subjective fevers with diaphoresis but not febrile. She has noticed blood on the toilet paper while wiping (and some hematochezia) but attributed this to her known hemorrhoids. Personally does not know if she has a history of diverticulosos/diverticulitis. History multiple abdominal surgeries. Related Data Home Medications Medication Instructions Recorded Confirmed diphenhydramine HCl 12.5 mg/5 mL 12.5 mg PO Q8H PRN Sinus Symptoms 03/23/20 12/12/23 oral liquid (Benadryl Allergy) PreserVision AREDS-2 2 tablet PO DAILY 05/26/20 12/12/23 calcium carbonate 600 mg-vitamin 2 tablet PO DAILY 05/26/20 12/12/23 D3 20 mcg (800 unit) chewable tablet (Caltrate 600 plus D) conjugated estrogens 0.625 mg/gram 1 applic vaginal WEEKLY 05/26/20 12/12/23 vaginal cream (Premarin) gabapentin 300 mg capsule 300 mg PO BID PRN Pain 05/26/20 12/12/23 (Neurontin) hydrochlorothiazide 12.5 mg capsule 12.5 mg PO DAILY 05/26/20 12/12/23 magnesium carbonate 250 mg capsule 250 mg PO DAILY 05/26/20 12/12/23 terbinafine 1 % topical gel 1 ea topical DAILY 05/26/20 12/12/23 terbinafine HCl 250 mg tablet 250 mg PO DIRECTED 05/26/20 12/12/23 valacyclovir 500 mg tablet 500 mg PO DAILY 05/26/20 12/12/23 acetaminophen 325 mg capsule 650 mg PO Q4-6H PRN Pain 06/15/20 12/12/23 (Tylenol) multivitamin 1 tablet PO DAILY 06/15/20 12/12/23 ascorbic acid (vitamin C) 500 mg 500 mg PO DAILY 08/30/21 12/12/23 capsule,extended release (Vitamin C) aspirin 81 mg capsule 81 mg PO DAILY 08/30/21 12/12/23 cholecalciferol (vitamin D3) 25 25 mcg PO DAILY 08/30/21 12/12/23 mcg (1,000 unit) chewable tablet (Vitamin D3) rosuvastatin 10 mg tablet (Crestor) 10 mg PO DAILY 08/30/21 12/12/23 zinc gluconate 50 mg tablet 50 mg PO DAILY 08/30/21 12/12/23 Allergies Allergy/AdvReac Type Severity Reaction Status Date / Time codeine Allergy Unknown Itching Verified 12/12/23 11:09 Sulfa (Sulfonamide Allergy Unknown Itching Verified 12/12/23 11:09 Antibiotics) FOR[facility]LY [facility], [facility] Past Medical History Medical History (Updated 12/13/23 @ 11:14 by Shelly Gutierrez MD) Adenomatous colon polyp Allergic rhinitis Asthma Asthma-COPD overlap syndrome Bipolar 1 disorder Chronic sinusitis with recurrent bronchitis COPD (chronic obstructive pulmonary disease) DDD (degenerative disc disease) Depression Deviated septum GERD (gastroesophageal reflux disease) History of tobacco use HTN (hypertension) LUIZ (obstructive sleep apnea) Surgical History Surgical History (Updated 12/13/23 @ 11:08 by Shelly Gutierrez MD) H/O colonoscopy last 09/2022, Dr Betancourt H/O esophagogastroduodenoscopy History of Sharelne fundoplication History of sinus surgery History of total hysterectomy Social History Social History (Updated 12/13/23 @ 11:08 by Shelly Gutierrez MD) Smoking packs per day: 1 Smoking cigarettes per day: 20.0 Years smoked: 30 Smoking pack-years: 30.00 Smoking status: Former smoker Tobacco type: cigarettes Smoking end date: 07/15/03 Alcohol intake: current Alcohol use details: occasional Substance use: never Substance use type: marijuana a
[2023-12-12 12:10] LABS: Add Urine Microscopic? YES
[2023-12-12] MEDS: MORPHINE SULFATE (*CRX) 4 MG/ML INJ IV PUSH (12:32)
[2023-12-12] MEDS: POTASSIUM BICARBONATE 25 MEQ TABEF PO (12:32)
[2023-12-12 12:33] VITALS: BP 137/76; PULSE 79; RESP 16; O2SAT 100
[2023-12-12 12:47] LABS: Magnesium 2.5 mg/dL (1.6-2.3)
[2023-12-12] MEDS: CIPROFLOXACIN 500 MG TAB PO (13:00)
[2023-12-12] MEDS: KETOROLAC 15 MG/ML VIAL (*BKC) IV PUSH (13:29)
[2023-12-12] MEDS: metroNIDAZOLE 500 MG/ISO 100ML 500 MG/100 ML BAG 100 MG IVPB (13:29)
[2023-12-12] MEDS: ACETAMINOPHEN 500 MG TABLET 1000 MG PO (13:29)
[2023-12-12 14:38] VITALS: BP 123/55; PULSE 79; RESP 18; TEMP 37; O2SAT 97
== END 2023-12-12 14:40 | disposition home or self-care (01) ==
PROVIDERS: Physician Assistant; Emergency Provider Student in an Organized Health Care Education/Training Program
DX: K57.32 Diverticulitis of large intestine without perforation or abscess without bleeding (principal); N39.0 Urinary tract infection, site not specified; E87.6 Hypokalemia; I10 Essential (primary) hypertension; J44.9 Chronic obstructive pulmonary disease, unspecified; J32.9 Chronic sinusitis, unspecified; K21.9 Gastro-esophageal reflux disease without esophagitis; G47.33 Obstructive sleep apnea (adult) (pediatric); F31.9 Bipolar disorder, unspecified; Z86.010 Personal history of colon polyps; Z79.82 Long term (current) use of aspirin; Z79.899 Other long term (current) drug therapy; Z90.710 Acquired absence of both cervix and uterus; Z87.891 Personal history of nicotine dependence
CPT/HCPCS: 36415; 74177; 80053; 81001; 83690; 83735; 85025; 96365; 96375; 99284; A9270; J1836; J1885; J2270; Q9967

== ENCOUNTER 2024-05-12 08:18 | Outpatient (CLI) | payer BC, MEDICARE, SELFPAY ==
--- NOTE | 2024-05-12 08:33 | ECG_ITS ---
Test Date: 2024-05-12 08:51:26 Measurements Intervals [place] Rate: 75 P: 33 FL: 146 QRS: -12 QRSD: 93 T: 16 QT: 363 QTc: 405 Interpretive Statements SINUS RHYTHM LOW QRS VOLTAGE IN PRECORDIAL LEADS [QRS DEFLECTION < 1.0 mV IN CHEST LEADS] No previous ECG available for comparison Electronically Signed On 05-12-2024 09:46:08 CDT by Norbert Yates M.D.
[2024-05-12 09:21] LABS: Anion Gap 7 mmol/L (4-12); Blood Urea Nitrogen 9 mg/dL (7-17); Calcium 9.5 mg/dL (8.4-10.2); Carbon Dioxide 29 mmol/L (22-30); Chloride 102 mmol/L (98-107); Estimated Glomerular Filt Rate > 60; Glucose 85 mg/dL (65-110); Potassium 4.1 mmol/L (3.4-5.0); Sodium 138 mmol/L (137-145)
== END 2024-05-12 08:19 | disposition home or self-care (01) ==
LOC: ANHSURGERY 08:23
PROVIDERS: Anesthesiology; PCP Family Medicine; Visit Provider Urology
DX: Z01.818 Encounter for other preprocedural examination (principal); R94.31 Abnormal electrocardiogram [ECG] [EKG]; Z87.891 Personal history of nicotine dependence; Z79.899 Other long term (current) drug therapy
CPT/HCPCS: 36415; 80048; 93005

== ENCOUNTER 2024-05-15 03:02 | Day surgery (SDC) | payer BC, MEDICARE, SELFPAY ==
[2024-05-08 13:11] VITALS: BMI 27.6
--- NOTE | 2024-05-08 13:12 | PC.NURSE ---
Report to the Outpatient Waiting Room, entrance under the green pavilion located off [facility], at time _1000_ on date _[id number]_. Planned Procedure Time: _1200_.? Time changes happen often and if your time is changed the preop area will call you the afternoon before. - You and your visitor will be asked to self-screen and do not enter if you have any COVID symptoms. Please call surgeon if you need to reschedule. - A mask is optional within the hospital at this time. Patients may have clear liquids (water, carbonated beverages, clear teas, apple juice) until 3 hours prior to surgery with a maximum of 20 ounces. - No food from midnight until time of surgery and no smoking Take only the following medications with a SIP of water on the morning of surgery: _Ok to use inhaler if needed.__ DO NOT STOP ANY OF YOUR OTHER PRESCRIPTION MEDICATIONS PRIOR TO SURGERY EXCEPT THE FOLLOWING Medications to discontinue per physician __None Please no make-up, nail vietnamese, hairspray, perfume, deodorant, or body powder the day of surgery.? No jewelry (including any body piercings) or valuables the day of surgery, leave them at home.? Please take a shower or bath the night before, or the morning of, surgery with an antibacterial soap.? Wear comfortable, loose fitting clothing.? - Jewelry must be removed prior to entering the operating room.? Rings and piercings that are not removed may be cut off. - The hospital will not accept responsibility for valuables.? - Please leave all valuables, including medications, at home the day of surgery. If you are going home after surgery, a licensed driver service technician must drive you home.? - NO public transportation without another adult if you receive anesthesia. - We recommend that an adult stay with you for 24 hours following discharge. - We also recommend that you do not drive, make important decision, drink alcoholic beverages, or take any drugs that were not prescribed by your health care provider for at least 24 hours after your discharge time. Follow any additional instructions given to you from your surgeon. Telephone instructions given to _Claire__and asked if any additional questions and then verbalized understanding. Patient advised to call surgeon office or pre surgery nurse liaison [phone] if any additional questions.
--- NOTE | 2024-05-09 16:12 | PM.IMHP ---
H&P: HPI History of Present Illness Date/Time: 05/09/24 16:12 Chief Complaint: UUI Narrative: UUI with InterStim. NO longer desires implant and needs a MRI Review of Systems Review of Systems: All systems reviewed & are unremarkable except as noted in HPI and below PMFSH Past Medical History Medical History Adenomatous colon polyp Allergic rhinitis Asthma Asthma-COPD overlap syndrome Bipolar 1 disorder Chronic sinusitis with recurrent bronchitis COPD (chronic obstructive pulmonary disease) DDD (degenerative disc disease) Depression Deviated septum GERD (gastroesophageal reflux disease) History of tobacco use HTN (hypertension) LUIZ (obstructive sleep apnea) Surgical History Surgical History H/O colonoscopy last 09/2022, Dr Betancourt H/O esophagogastroduodenoscopy History of Sharlene fundoplication History of sinus surgery History of total hysterectomy Social History Social History Smoking packs per day: 1 Smoking cigarettes per day: 20.0 Years smoked: 40 Smoking pack-years: 40.00 Smoking status: Former smoker Tobacco type: cigarettes Smoking end date: 05/08/04 Alcohol intake: current Alcohol use details: occasional Substance use: never Substance use type: marijuana and other Other substance usage details: CBD as needed, not often. Last use: DAILY Living arrangements: with family Additional living arrangements comments: / Gender identity (if verbalized by the patient): Female Spiritual care concerns: No Meds Home Medications and Allergies Home Medications Medication Instructions Recorded Confirmed Type diphenhydramine HCl 12.5 mg/5 mL 12.5 mg PO Q8H PRN Sinus Symptoms 03/23/20 05/08/24 History oral liquid (Benadryl Allergy) albuterol sulfate 90 mcg/actuation 2 puff inhalation Q4-6H PRN 03/24/20 05/08/24 Rx aerosol inhaler (ProAir HFA) shortness of breath or wheezing 1 month #8.5 grams fluticasone fur. 100 mcg-umeclid 1 inh inhalation Q24H 1 month #60 02/07/22 05/08/24 Rx 62.5 mcg-vilant 25 mcg ea inhalat.powder (Trelegy Ellipta) Allergies Allergy/AdvReac Type Severity Reaction Status Date / Time codeine Allergy Unknown Itching Verified 05/08/24 13:01 Sulfa (Sulfonamide Allergy Unknown Itching Verified 05/08/24 13:01 Antibiotics) Exam Narrative: NAD A+O x3 normal breathing Assessment and Plan Assessment and plan (1) Urge incontinence: Code(s): N39.41 - Urge incontinence Status: Acute Assessment and Plan: remove InterStim device
--- NOTE | ~2024-05-15 | XR_ITS ---
EXAMINATION: XR fluoroscopy no charge DATE: 05/15/2024 13:13 INDICATION: Neurostimulator implant removal. TECHNIQUE: 2 intraoperative fluoroscopic views of the pelvis were obtained. I was not present. Fluoro scopy exposure time was 8 seconds. COMPARISON: CT abdomen and pelvis 12/12/2023 FINDINGS: There is no side marker. There is an electrode in an S3 neural foramen. IMPRESSION: 1. Electrode in an S3 neural foramen. Reviewed, dictated and finalized at location B.
--- NOTE | 2024-05-15 04:49 | WPDHPUPDATE1 ---
History and Physical Update Update Date/Time: 05/15/24 04:49 History and Physical has been reviewed, including an updated exam of the patient. There are NO changes in the patient's condition. Risks, benefits, and alternatives have been discussed and questions answered. Patient agrees to proceed with procedure.
[2024-05-15 10:11] VITALS: BMI 27.8
[2024-05-15 11:00] VITALS: BP 168/75; PULSE 75; RESP 16; TEMP 37.2; O2SAT 97
--- NOTE | 2024-05-15 11:01 | P.PNAN_ITS ---
Anes - Initial Pre Proc Eval Procedure: Operation Date: 05/15/24 12:00 Proposed Procedures p Removal of Neurostimulator Implant - Juan Packer MD Date/Time: 05/15/24 11:01 Surgeon: Juan Packer MD Pre Op Diagnosis: chronic back pain Patient Data Age: 64 Gender: F Height: 1.68 m Weight: 78.4 kg Last Vital Signs Temp 37.2 C 05/15/24 11:00 Pulse 75 05/15/24 11:00 Resp 16 05/15/24 11:00 BP 168/75 H 05/15/24 11:00 Pulse Ox 97 05/15/24 11:00 Allergies Allergy/AdvReac Type Severity Reaction Status Date / Time codeine Allergy Unknown Itching Verified 05/15/24 10:30 Sulfa (Sulfonamide Allergy Unknown Itching Verified 05/15/24 10:30 Antibiotics) Home Medications Medication Instructions Recorded Confirmed Type diphenhydramine HCl 12.5 mg/5 mL 12.5 mg PO Q8H PRN Sinus Symptoms 03/23/20 05/15/24 History oral liquid (Benadryl Allergy) albuterol sulfate 90 mcg/actuation 2 puff inhalation Q4-6H PRN 03/24/20 05/15/24 Rx aerosol inhaler (ProAir HFA) shortness of breath or wheezing 1 month #8.5 grams fluticasone fur. 100 mcg-umeclid 1 inh inhalation Q24H 1 month #60 02/07/22 05/15/24 Rx 62.5 mcg-vilant 25 mcg ea inhalat.powder (Trelegy Ellipta) lisinopril See Rx Instructions .Route .COMPLEX 05/15/24 05/15/24 History Patient hx anesthesia problems: none Family hx anesthesia problems: none Results Review: All pre-operative results and documents have been reviewed as part of the pre- operative evaluation. FORMERLY [facility] Past Medical History Medical History Adenomatous colon polyp Allergic rhinitis Asthma Asthma-COPD overlap syndrome Bipolar 1 disorder Chronic sinusitis with recurrent bronchitis COPD (chronic obstructive pulmonary disease) DDD (degenerative disc disease) Depression Deviated septum GERD (gastroesophageal reflux disease) History of tobacco use HTN (hypertension) LUIZ (obstructive sleep apnea) Surgical History Surgical History H/O colonoscopy last 09/2022, Dr Betancourt H/O esophagogastroduodenoscopy History of Sharlene fundoplication History of sinus surgery History of total hysterectomy Social History Social History Smoking packs per day: 1 Smoking cigarettes per day: 20.0 Years smoked: 40 Smoking pack-years: 40.00 Smoking status: Former smoker Tobacco type: cigarettes Smoking end date: 05/08/04 Alcohol intake: current Alcohol use details: occasional Substance use: never Substance use type: marijuana and other Other substance usage details: CBD as needed, not often. Last use: DAILY Living arrangements: with family Additional living arrangements comments: / Gender identity (if verbalized by the patient): Female Spiritual care concerns: No Anes - Eval Final PreProcedure Day of Procedure 05/15/24 11:01 Patient weight: overweight Heart: regular rate and rhythm Lungs: clear to auscultation Airway: Mallampati scale class II Neurological: alert and oriented Last oral intake: >/= 8 hours ASA classification: III Emergent: no Anesthetic plan: proceed Anesthesia type and monitoring: general GIVS and standard monitoring Results Review: All pre-operative results and documents have been reviewed as part of the pre- operative evaluation. Informed Consent: The patient's anesthetic plan and its attendant risks and benefits were discussed with the patient/family/POA. Questions were solicited and answers provided to the satisfaction of the patient/family/POA.
[2024-05-15] MEDS: LACTATED RINGERS 1,000 ML 30 ML IV CONT (11:02)
[2024-05-15] MEDS: ceFAZolin 2 GM/D5W 50 ML 2 GM/50 ML BAG IVPB (12:03)
[2024-05-15] MEDS: BUPIVACAINE/EPINEPHRINE 0.5% 50 ML VIAL 30 ML INFILTRATE (12:21)
--- NOTE | 2024-05-15 12:38 | P.OP_ITS ---
Procedure Note - Detailed Date of Procedure 05/15/24 Pre-op Diagnosis Urge incontinence Post-op Diagnosis Same Procedure Performed Removal of sacral neurostimulator [id number] Surgeon Juan Packer MD Anesthesia MAC and Local Indications She has InterStim device in place. She desires removal to have an MRI. She does not want it replaced. She understands risks of bleeding, infection, incomplete device removal. She agrees to proceed Findings Uncomplicated device removal Description of Procedure She is correctly identified. Informed consent obtained. She is from the operating room. She was given monitored anesthesia care. She was placed in prone position. Lower back and buttock were prepped draped sterile fashion. Time-out performed. I anesthetized the skin over the pulse generator. I incis ed the skin. I explanted the pulse generator and removed the capsule. I then anesthetized the skin over the sacral lead. I incised the skin. I located the lead and removed its entirety. Irrigated out the wounds. I assured hemostasis. Closed subcutaneous tissues with 2-0 Vicryl. Skin with 4-0 Vicryl. Glue was applied. She was awakened transferred to PACU in stable condition. Estimated Blood Loss 0 Drains No Packing No Pathology None sent Complications No immediate complications Condition Stable Disposition PACU
[2024-05-15 12:43] VITALS: BP 130/68; PULSE 76; RESP 14; O2SAT 98
[2024-05-15 13:10] VITALS: BP 158/88; PULSE 76; RESP 14
[2024-05-15 13:30] VITALS: BP 148/71; PULSE 62; RESP 14
== END 2024-05-15 13:42 | disposition home or self-care (01) ==
PROVIDERS: PCP Family Medicine; Visit Provider Urology
PROC: (CPT 64585; principal; 2024-05-15 12:00)
DX: Z45.42 Encounter for adjustment and management of neurostimulator (principal); M54.9 Dorsalgia, unspecified; G89.29 Other chronic pain; J44.9 Chronic obstructive pulmonary disease, unspecified; I10 Essential (primary) hypertension; Z79.51 Long term (current) use of inhaled steroids; Z87.891 Personal history of nicotine dependence
CPT/HCPCS: 64585; 64595; 99199; J0690; J1200; J2003; J2250; J2270; J2704; J7120

== ENCOUNTER 2024-07-16 15:09 | Outpatient (CLI) | payer BC, MEDICARE, SELFPAY ==
[2024-07-16 15:25] LABS: Hematocrit 37.3 % (37.0-47.0); Hemoglobin 12.8 g/dL (12.0-15.0); Mean Corpuscular HGB Conc 34.3 g/dl (32-36); Mean Corpuscular Hemoglobin 31.1 pg (26-34); Mean Corpuscular Volume 90.8 fl (80-100); Mean Platelet Volume 8.7 fl (7.4-10.4); Platelet Count Result 246 k/mm3 (150-375); Red Blood Count 4.11 M/mm3 (4.2-5.4); Red Cell Distribution Width 12.5 % (11.5-14.5); White Blood Count 5.7 K/mm3 (4.5-10.0)
[2024-07-16 15:27] LABS: Add Urine Microscopic? NO; Appearance Urine Clear (Clear); Bilirubin Urine Negative (Negative); Blood Urine Negative (Negative); Color Urine Yellow (Yellow); Glucose Urine UA Negative (Negative); Ketones Urine Negative (Negative); Leukocyte Esterase Ur Negative LEU/UL (Negative); Nitrate Urine Negative (Negative); Protein Urine Negative (Negative); Specific Grav Ur 1.012 (1.001-1.035); Urobilinogen Urine 0.2 mg/dL (<2.0); pH Urine 7.5 (5.0-9.0)
[2024-07-16 15:35] LABS: Alanine Aminotransferase 25 U/L (6-35); Albumin Level 4.2 g/dL (3.5-5.1); Alkaline Phosphatase 82 U/L (38-126); Amylase 69 U/L (30-110); Anion Gap 0 mmol/L (4-12); Aspartate Amino Transferase 27 U/L (14-36); Bilirubin,Total 0.8 mg/dL (0.2-1.3); Blood Urea Nitrogen 8 mg/dL (7-17); Calcium 8.9 mg/dL (8.4-10.2); Carbon Dioxide 31 mmol/L (22-30); Chloride 105 mmol/L (98-107); Estimated Glomerular Filt Rate > 60; Glucose 99 mg/dL (65-110); Lipase 99 U/L (23-300); Potassium 3.9 mmol/L (3.4-5.0); Sodium 136 mmol/L (137-145)
== END 2024-07-16 15:10 | disposition home or self-care (01) ==
PROVIDERS: PCP Family Medicine; Visit Provider Nurse Practitioner
DX: R10.32 Left lower quadrant pain (principal); R14.0 Abdominal distension (gaseous)
CPT/HCPCS: 36415; 80053; 81003; 82150; 83690; 85027

== ENCOUNTER 2024-07-17 10:54 | Outpatient (CLI) | payer BC, MEDICARE, SELFPAY | END 2024-07-17 10:55 | disposition home or self-care (01) | PROVIDERS: PCP Family Medicine; Visit Provider Nurse Practitioner | DX: R10.32 Left lower quadrant pain (principal); R14.0 Abdominal distension (gaseous) | CPT/HCPCS: 87045; 87269; 87427; 87449 ==

== ENCOUNTER 2024-07-31 06:31 | Outpatient (CLI) | payer BC, MEDICARE, SELFPAY ==
--- NOTE | ~2024-07-31 | CT_ITS ---
EXAMINATION: CT abdomen pelvis w con DATE: 07/31/2024 07:01 INDICATION: Left lower quadrant abdominal pain. TECHNIQUE: Computed tomography (CT) of the abdomen and pelvis was performed with 100 mL Omnipaque 350 intravenous contrast. Automated exposure control and iterative reconstruction technique were employe d. The dose-length product was 472.49 mGy-cm. COMPARISON: CT abdomen and pelvis 12/12/2023 FINDINGS: The visualized portions of the lung bases demonstrate minimal atelectasis. Calcified right lung nodules are consistent with old granulomatous disease. No pleural effusion. The heart size is no rmal. No pericardial effusion. There are cysts in the liver measuring up to 8 mm. Again seen is a 2.1 cm mass in right hepatic lobe with interrupted peripheral puddling of contrast on a prior CT, consis tent with a hemangioma. There are changes of cholecystectomy. The spleen, pancreas, and adrenal gland s are normal. There are cysts in the kidneys measuring up to 18 mm on the left. There is diverticulos is of the colon without evidence of diverticulitis. There are no dilated loops of bowel. There are ch anges of appendectomy. There are no pathologically enlarged lymph nodes. There is no free intraperito mario fluid. There is subcutaneous scarring in right buttock where an electronic device was removed. T here is a bone graft harvest site in right ilium. There is severe lumbar and lower thoracic spondylos is. There are changes of anterior and posterior fusion procedures at L4-L5 and anterior fusion proced ure at L5-S1. IMPRESSION: 1. No etiology for the patient's symptoms. Reviewed, dictated and finalized at location A. [employer]ER IN[employer]ER
--- OUTSIDE RECORDS SUMMARY | 2024-08-06 04:59 | XMS_ITS | Continuity of Care Document ---
Author Organization [facility] Address [address] [place] [address] Phone Care Team Providers Care Social Science Analyst Name Role Phone Ken Person MD Unavailable Unavailable Advance Directives Directive Yes / No Effective Date File Name No Information Encounters Encounter Description Practice Location Reason(s) For Visit Diagnoses Date Provider Providers Copied on Encounter [facility], [address], [place], [place], [id number], [place] tel:[phone] [facility] No Information Naya Rogers. [address] , [place], [place], [id number], [place]. tel:[phone] Referring Provider: Terence Castillo DO, [address], [place], [address]. tel:[phone] Family History Family Member Type Diagnosis Age At Onset No Information Payers Payer name Insurance type Covered constitution party ID Authoryuniel shore(s) VEGA BRADY [id number] [place]ICARE [place] [id number] Social History Type Description Quantity Date Captured Comments Sex Female Smoking Status No Information Chief Complaint And Reason For Visit No Information Reason For Referral Reason For Referral No Information History Of Present Illness Encounter Date Complaint History Of Prese nt Illness No Information Functional Status Date Functional Assessmen t No Information Instructions Date Instruction Additional Infor mation No Information Assessments Type Assessment Date No Information Patient Care Teams Name Effective Dates (start - stop) Status Members No Information
--- OUTSIDE RECORDS SUMMARY | 2024-08-06 04:59 | XMS_ITS | Clinical Summary ---
Author Organization [facility] Address [address] [place] [address]. [place], [place] [id number] [place] [id number] Care Team Providers Care Supervisor Irrigation Name Role Phone Unavailable Primary Care Provider Unavailabl e Social History Tobacco Use Types Packs/Day Years Used Date Smoking Tobacco: Never Assessed Comments Unknown Sex and Gender Information Value Date Recorded Sex Assigned at Not on file Legal Sex Female 7:17 PM CDT Gender Identity Not on file Sexual Orientation Not on file Plan of Treatment Health Maintenance Due Date Last Done Comments Cervical Cancer Screening Pa p Smear (Age 30 to 64) Every 3 Years 1960 Colorectal Cancer Screening Colonoscopy (10 Years) 1960 Annual Physical 1963 Hepatitis C 1978 DTaP, Tdap and Td Vaccines ( 1 - Tdap) 1979 Cervical Cancer Screening Pa p with HPV Testing (Age 30 to 64) Every 5 Years 1990 Cervical Cancer Screening with HPV 1990 Mammogram Screening 2000 Zoster Vaccines (1 of 2) 2010 COVID-19 Vaccine (2023-2 5 season) 2024 Influenza Adult (#1) 2024 RSV Immunization or 60+ Years (1 - 1-dose 75+ series) 2035 Meningococcal Vaccine Aged Out No frank omkar eligible based on patient's age to complete this topic Pneumococcal Vaccine: Pediat rics (0 to 5 Years) and At-Risk Patients (6 to 64 Years) Aged Out No longer eligible b ased on patient's age to complete this topic RSV Immunizations Under 20 Months Aged Out No longer eligible based on patient's age to complete this topic
--- OUTSIDE RECORDS SUMMARY | 2024-08-06 04:59 | XMS_ITS | Clinical Summary ---
Author Organization [facility] Address [address] [place] [address] Phone Care Team Providers Care Ambulance Attendant Name Role Phone Jimmy Yi MD Primary Care Provider [phone] Allergies Active Allergy Reactions Criticality Noted Date Comments Codeine Itching Low 06/23/2012 Sulfa Antibiotics Itching Low 06/23/2012 Medications terbinafine (LamISIL) 250 MG Tablet Take 250 mg by mouth daily. 04/14/2020 Active gabapentin (NEURONTIN) 300 MG Capsule 04/11/2020 Active Naproxen Sodium (ALEVE PO) Take 220 mg by mouth. Active Multiple Vitamins-Minerals (PRESERVISION AREDS 2 PO) Take by mouth. Active Chlorpheniramine Maleate (ALLERGY PO) Take 25 mg by mouth. Active Trelegy Ellipta 100-62.5-25 MCG/INH AEROSOL POWDER, BREATH ACTIVATED 03/24/2020 Active ProAir HFA 108 (90 Base) MCG/ACT Aerosol Solution 03/24/2020 Ac tive Premarin 0.625 MG/GM Cream 02/19/2020 Active valACYclovir (VALTREX) 500 MG Tablet 02/19/2020 Active other by Other route. CBD oil Active omeprazole (PriLOSEC) 40 MG CAPSULE DELAYED RELEASEIndication s:Gastroesophagea l reflux disease, unspecified whether esophagitis present Take 1 Cap by mouth daily. 90 Cap 3 05/09/2020 Active Active Problems No known active problems Immunizations Immunization Administration Dates Next Due Influenza Vaccine 04/28/2015 Influenza Vaccine, MDCK,quad rivalent, pres free 04/14/2019,04/16/2018,04/18/2017 Influenza Vaccine, Quadrivalent, PF 05/06/2016 Family History Medical History Relation Name Comments Heart Disease Father Diabetes Maternal Grandfather Heart Disease Maternal Grandfather Ovarian Cancer Maternal Grandmother Diabetes Mother Heart Disease Mother Rheumatoid Arthritis Sister Relation Name Status Comments Father Maternal Grandfather Maternal Grandmother Mother Sister Social History Tobacco Use Types Packs/Day Years Used Date Smoking Tobacco: Former Smokeless Tobacco: Never Tobacco Cessation:Counseling Given: No Alcohol Use Standard Drinks/Week Comments Yes 0 (1 standard drink = 0.6 oz pur e alcohol) AUDIT-C Answer Date Recorded Q1: How often do you have a drink containing alc ohol? Monthly or less 05/09/2020 Average Number of Drinks Not on file 020 Frequency of Binge Drinking Not on file 04/15 Sexually Active Control Partners Comments Not Currently Comments No Sex and Gender Information Value Date Recorded Sex Assigned at Not on file Legal Sex Female 10:33 PM CDT Gender Identity Not on file Sexual Orientation Not on file Last Filed Vital Signs Vital Sign Reading Time Taken Comments Blood Pressure 138/82 05/09/2020 8:04 AM CDT Pulse 85 05/09/2020 8:04 AM CDT Temperature 36.7 ??C (98.1 ??F) 05/09/2020 8:04 AM CD T Respiratory Rate 22 05/09/2020 8:04 AM CDT Oxygen Saturation 98% 05/09/2020 8:04 AM CDT Inhaled Oxygen Concentration - - Weight 80.7 kg (178 lb) 05/09/2020 8:04 AM CDT Height 167.6 cm (5' 6 ) 05/09/2020 8:04 AM CDT Body Mass Index 28.73 05/09/2020 8:04 AM CDT Plan of Treatment Health Maintenance Due Date Last Done Comments Hepatitis C Virus (HCV) Screening 1960 TdaP Immunization 1960 Cologuard 2010 Immunochemical Fecal Occult Blood 2010 Mammogram 2010 Pneumococcal Immunization (50+ years) (1 of 1 - PCV) 2010 Zoster Immunization (1 of 2) 2010 Colonoscopy 08/24/2021 08/24/2020, 06/23/2020 Colorectal Cancer Screening 08/24/2021 Influenza Immunization (#1) 2024 10/0 07/2018, 04/16/2018, 04/18/2017, Additional history exists SARS-COV-2 Immunization ( season) 2024 07/18/2021, 09/19/2020 Respiratory Syncytial Virus (RSV) Immunization (Adult) (1 - 1-dose 75+ series) 2035 08/24/2020, 06/23/2020 Hepatitis B Immunization Aged Out No longer eligible based on patient's age to complete this topic Meningococcal Immunization (ACWY) Aged Out No longer eligible based on patient's age to complete this topic Pneumococcal Immunization Combined Aged Out No longer eligible based on patient's age to complete this topic Rotavirus Immunization Aged Out No lo nger eligible based on patient's age to complete this topic Procedures Procedure Name Priority Date/Time Associated Diagnosis Comments COLONOSCOPY Routine 08/24/2020 from Last 3 Months or Most Recently Relevant to Health Maintenance Results * COLONOSCOPY (08/24/2020) Joseph Zimmerman DO PROCEDURE/MINOR SURGICAL ORDERA BLES Final Result from Last 3 Months or Most Recently Relevant to Health Maintenance Insurance MEDICARE [facility] Care Teams Ambulance Attendant Relationship Specialty Start Date End Date Jimmy Yi MD [address] [place] [address] PCP - General Sports Medicine 05/09/20
--- OUTSIDE RECORDS SUMMARY | 2024-08-06 04:59 | XMS_ITS | CONTINUITY OF CARE DOCUMENT ---
Author Name jennifer, jennifer Address Unknown Organization [facility] Address [address] [place] [address] Phone [phone] Care Team Providers Care Operating Room Tech Name Role Phone Anuj EMLO, Channing Unavailable BELGICA BURNETT MD Unavailable BELGICA BURNETT MD Unavailable PROBLEMS Condition Status Date Provider Notes HYPOGLYCEMIA active Grace Morrell Hypercholesterolemia, mixed active Beatriz Gr uenenfelder ASTHMA active Grace Morrell TOBACCO USE QUIT active Grace Morrell FAMILY HISTORY OF HEART DISEASE active Channing Leslie MD CAD-09/23 NUC FIX DEF EF 55 05/28 nuc nl , improved active ? Channing Leslie MD Palpitations active Nanda Madera MD SNORING completed - Channing Leslie MD Atrial flutter, paroxysmal active Channing mooney MD Chest tightness active Channing Leslie MD Gastric ulcer active Joseph C [place] Esophageal stricture active Joseph C [place] LUIZ, mild, on sleep study 06/2017, CPAP intolerant active Channing Leslie MD SHORTNESS OF BREATH COPD active Channing evans MD CHEST PAIN-03/15 CATH NL active ? Channing evans MD ENCOUNTERS Date Type Provider Location Encounter Diag nosis - In-person encounter Office Visit Channing Leslie MD [facility] - In-person encounter Office Visit Channing Leslie MD [facility] Gastric ulcerEsophageal stricture - In-person encounter Office Visit Channing Leslie MD [facility] - In-person encounter Office Visit Channing Leslie MD [facility] - In-person encounter Office Visit Channing Leslie MD [facility] Chest tightness - In-person encounter Office Visit Channing Leslie MD [facility] - In-person encounter Office Visit Channing Leslie MD [facility] - In-person encounter Office Visit Channing Lselie MD [facility] SNORINGOSA, mild, on sleep study 06/2017, CPAP intolerant - In-person encounter Office Visit Channing Leslie MD [facility] Atrial flutter, paroxysmal - In-person encounter Office Visit Nanda Madera MD [facility] Palpitations - In-person encounter Office Visit Channing Leslie MD [facility] CAD-09/23 NUC FIX DEF EF 55 05/28 nuc nl , improved - In-person encounter Office Visit Channing Leslie MD [facility] - In-person encounter Office Visit Channing Leslie MD [facility] CAD-09/23 NUC FIX DEF EF 55 05/28 nuc nl , improved - In-person encounter Office Visit Channing Leslie MD [facility] CAD-09/23 NUC FIX DEF EF 55 05/28 nuc nl , improved - In-person encounter Office Visit Channing Leslie MD [facility] - In-person encounter Office Visit Channing Leslie MD [facility] - In-person encounter Office Visit Channing Leslie MD [facility] - In-person encounter Office Visit Channing Leslie MD [facility] - In-person encounter Office Visit Channing Leslie MD [facility] - In-person encounter Office Visit Channing Leslie MD [facility] - In-person encounter Office Visit Channing Leslie MD [facility] - In-person encounter Office Visit Channing Leslie MD [facility] - In-person encounter Office Visit Channing Leslie MD [facility] - In-person encounter Office Visit Channing Leslie MD [facility] - In-person encounter Office Visit Channing Leslie MD [facility] CHEST PAIN-03/15 CATH NLSHORTNESS OF BREATH COPDFAMILY HISTORY OF HEART DISEASE VITAL SIGNS Date Observation Value Provider Body Mass Index (Ratio) 27.72 kg/m2 Jourdan Leslie MD blood pressure, cuff size regular Cy moon Nickerson blood pressure, diastolic 70 mm[Hg] Raymond Nickerson blood pressure, systolic 140 mm[Hg] Cathy Nickerson pulse rate 87 /min Abigail obrien oxygen saturation, oximetry 98 % Abigail Nickerson respiratory rate E&M 16 /min Abigail Nickerson weight E&M 177 [lb_av] Abigail obrien height E&M 67 [in_i] Abigail obrien Body Mass Index (Ratio) 28.97 kg/m2 Jourdan Leslie MD blood pressure, cuff size large Ke rri Salvadoruenechrista blood pressure, diastolic 90 mm[Hg] Ke rri Salvadoruenenfelder blood pressure, systolic 160 mm[Hg] Ker ri Gruenenfelder oxygen saturation, oximetry 98 % Beatriz Gruenenfelder respiratory rate E&M 16 /min Beatriz G ruenenfelder pulse rate 98 /min Beatriz Gruenenfe lder weight E&M 185 [lb_av] Beatriz Gruenenfe lder height E&M 67 [in_i] Beatriz Gruenenfe [facility] Body Mass Index (Ratio) 27.72 kg/m2 Jourdan Leslie MD weight E&M 177 [lb_av] [facility] pulse rate 80 /min [facility] oxygen saturation, oximetry 96 % [facility] blood pressure, diastolic 67 mm[Hg] To [facility] blood pressure, systolic 125 mm[Hg] Ton [facility] height E&M 67 [in_i] [facility] Body Mass Index (Ratio) 27.25 kg/m2 Jourdan Leslie MD blood pressure, cuff size regular Cr sandra Lepe blood pressure, diastolic 90 mm[Hg] Cr sandra Lepe blood pressure, systolic 130 mm[Hg] Cry stamicah Lepe oxygen saturation, oximetry 98 % Germania Lepe respiratory rate E&M 17 /min Germania Lepe pulse rate 81 /min Germania Hicks s weight E&M 174 [lb_av] Germania Hicks s height E&M 67 [in_i] Germania Hicks s Body Mass Index (Ratio) 28.03 kg/m2 Jourdan Leslie MD blood pressure, cuff size large Ke rri Gruenenfelder blood pressure, diastolic 80 mm[Hg] Ke rri Gruenenfelder blood pressure, systolic 130 mm[Hg] Ker ri Lakia oxygen saturation, oximetry 99 % Beatriz Leslienenfelder respiratory rate E&M 22 /min Beatriz rueda pulse rate 89 /min Beatriz Mckeon lder weight E&M 179 [lb_av] Beatriz Mckeon lder height E&M 67 [in_i] Beatriz Mckeon lder Body Mass Index (Ratio) 28.50 kg/m2 Jourdan Leslie MD blood pressure, cuff size regular Cy ntadam Nickerson blood pressure, diastolic 62 mm[Hg] Cy nthia Nickerson blood pressure, systolic 140 mm[Hg] Cathy jayjaya Nickerson oxygen saturation, oximetry 94 % Abigail Nickerson respiratory rate E&M 16 /min Abigail Nickerson pulse rate 96 /min Abigail Campbel l weight E&M 182 [lb_av] Abigail Campbel l height E&M 67 [in_i] Abigail Campbel l Body Mass Index (Ratio) 27.41 kg/m2 Jourdan Leslie MD blood pressure, cuff size regular Cy nthiltona Nickerson blood pressure, diastolic 76 mm[Hg] Cy nthia Nickerson blood pressure, systolic 144 mm[Hg] Cathy jayjaya Nickerson oxygen saturation, oximetry 98 % Abigail Nickerson respiratory rate E&M 18 /min Abigail Nickerson pulse rate 98 /min Abigail Campbel l weight E&M 175 [lb_av] Abigail Campbel l height E&M 67 [in_i] Abigail Campbel l Body Mass Index (Ratio) 27.56 kg/m2 [place] blood pressure, cuff size regular Ke rri Gruenenfelder blood pressure, diastolic 70 mm[Hg] Ke rri Gruenenfelder blood pressure, systolic 132 mm[Hg] Fidelina Dorman oxygen saturation, oximetry 98 % Beatriz Dorman respiratory rate E&M 18 /min Beatriz shepardelder pulse rate 86 /min Beatriz Mckeon lder weight E&M 176 [lb_av] Beatriz Mckeon lder height E&M 67 [in_i] Beatriz Mckeon er Body Mass Index (Ratio) 27.47 kg/m2 Jourdan Leslie MD blood pressure, diastolic 88 mm[Hg] Serafin austinNaervin Peck blood pressure, systolic 148 mm[Hg] Kiarra Josephoziel Peck oxygen saturation, oximetry 94 % Gavino Peck respiratory rate E&M 18 /min Tonya Peck pulse rate 97 /min Gavino Munguia blairelamberto weight E&M 175.4 [lb_av] Gavino tate height E&M 67 [in_i] Gavino Munguia lamberto Body Mass Index (Ratio) 27.44 kg/m2 Barbie Madera MD blood pressure, resting Yes Nela Peck blood pressure, diastolic 84 mm[Hg] Serafin Johnservin WhitakerPeck blood pressure, systolic 143 mm[Hg] Kiarra Melolewoziel Peck oxygen saturation, oximetry 96 % Gavino Peck respiratory rate E&M 20 /min Tonya Peck pulse rate 100 /min Gavino ruddon weight E&M 175.2 [lb_av] Gavino estevezon height E&M 67 [in_i] Gavino Munguia nson Body Mass Index (Ratio) 26.31 kg/m2 Jourdan Leslie MD blood pressure, cuff size regular Belem Buckley blood pressure, diastolic 80 mm[Hg] Belem Buckley blood pressure, systolic 130 mm[Hg] Marizol Buckley oxygen saturation, oximetry 98 % Priya Buckley respiratory rate E&M 16 /min Priya Buckley pulse rate 89 /min Priya Buckley weight E&M 168 [lb_av] Priya Buckley height E&M 67 [in_i] Priya Buckley blood pressure, diastolic 73 mm[Hg] Me cesilia Trevino blood pressure, systolic 140 mm[Hg] Elham Trevino pulse rate 84 /min Piper Trevino oxygen saturation, oximetry 98 % Piper Trevino respiratory rate E&M 15 /min Piper Trevino Body Mass Index (Ratio) 26.47 kg/m2 Edelmira valverde Trevino weight E&M 169 [lb_av] Piper Trevino blood pressure, diastolic 78 mm[Hg] Me lomas Trevino blood pressure, systolic 128 mm[Hg] Elham Merrillann pulse rate 62 /min Piper Trevino oxygen saturation, oximetry 98 % Piper Trevino respiratory rate E&M 15 /min Piper Trevino Body Mass Index (Ratio) 28.35 kg/m2 Edelmira abram Trevino weight E&M 181 [lb_av] Piper Trevino Body Mass Index (Ratio) 27.88 kg/m2 Edelmira valverde Joe blood pressure, diastolic 80 mm[Hg] Me cesilia Joe blood pressure, systolic 136 mm[Hg] Elham robles Joe pulse rate 102 /min Piper Joe oxygen saturation, oximetry 98 % Piper Joe respiratory rate E&M 18 /min Piper Joe weight E&M 178 [lb_av] Piper Joe Body Mass Index (Ratio) 27.88 kg/m2 Anea chris Ritter blood pressure, diastolic 94 mm[Hg] An gertruderis Brown blood pressure, systolic 157 mm[Hg] Ane atris Brown pulse rate 91 /min Aneatris Brown oxygen saturation, oximetry 97 % Aneatris Brown respiratory rate E&M 17 /min Aneatri s Stone weight E&M 178 [lb_av] Aneatris Brown Body Mass Index (Ratio) 28.29 kg/m2 [place] carey Uribe blood pressure, diastolic 81 mm[Hg] Na munira Koenigoney blood pressure, systolic 131 mm[Hg] Anais estrada Uribe pulse rate 86 /min Nadine Uribe oxygen saturation, oximetry 96 % Nadine Uribe respiratory rate E&M 17 /min Nadine Rony weight E&M 180 [lb_av] Nadine Rony Body Mass Index (Ratio) 27.45 kg/m2 Tai Barnes PSYCHOLOGICAL OPERATIONS SPECIALIST weight E&M 174.6 [lb_av] Naa Barnes NP blood pressure, diastolic 63 mm[Hg] Fuentes Armstrong RN blood pressure, systolic 113 mm[Hg] Timothy Armstrong RN pulse rate 74 /min Timothy Armstrong RN oxygen saturation, oximetry 98 % Timothy Armstrong RN respiratory rate E&M 18 /min Timothy doran RN Body Mass Index (Ratio) 27.98 kg/m2 Timothy Armstrong RN weight E&M 178 [lb_av] Timothy Armstrong RN Body Mass Index (Ratio) 30.65 kg/m2 Lacr philly Baker PSYCHOLOGICAL OPERATIONS SPECIALIST weight E&M 195 [lb_av] Lacretimeme Davidson s PSYCHOLOGICAL OPERATIONS SPECIALIST weight E&M 197.6 [lb_av] Radha Mueller P height E&M 67 [in_i] Radha Rios PSYCHOLOGICAL OPERATIONS SPECIALIST weight E&M 184 [lb_av] Radha Gabriel PSYCHOLOGICAL OPERATIONS SPECIALIST blood pressure, diastolic 81 mm[Hg] Arredondoran blood pressure, systolic 125 mm[Hg] Jax sherley Phamran pulse rate 96 /min Jaxronwarren Phamran oxygen saturation, oximetry 98 % Timothy Prescott respiratory rate E&M 16 /min Timothy [place] weight E&M 183 [lb_av] Jaxyean [place] blood pressure, diastolic 84 mm[Hg] Marielena seph [place] blood pressure, systolic 118 mm[Hg] José eph [place] pulse rate 98 /min Victor M [place] oxygen saturation, oximetry 97 % Victor M [place] respiratory rate E&M 16 /min Victor M [place] weight E&M 186 [lb_av] Victor M [place] blood pressure, diastolic, right arm 88 m m[Hg] Victor M [place] blood pressure, systolic, right arm 136 m m[Hg] Victor M [place] blood pressure, diastolic 88 mm[Hg] Marielena seph [place] blood pressure, systolic 136 mm[Hg] José eph [place] pulse rate 97 /min Victor M [place] oxygen saturation, oximetry 98 % Victor M [place] respiratory rate E&M 16 /min Victor M [place] weight E&M 188 [lb_av] Victor M [place] blood pressure, diastolic 89 mm[Hg] Fuentes Armstrong RN blood pressure, systolic 150 mm[Hg] Timothy Armstrong RN pulse rate 81 /min Timothy Armstrong RN oxygen saturation, oximetry 100 % Timothy Armstrong RN respiratory rate E&M 18 /min Timothy doran RN weight E&M 190 [lb_av] Timothy Armstrong RN ALLERGIES Allergy Name Onset Date Reaction Criticality Status PENICILLIN High Criticality aborted CODEINE Low Criticality active SULFA Low Criticality active RESULTS Date Observation Value Provider Reference Range Interpretation Location hemoglobin A1C, blood, as % of total hemoglobin 5.3 % OF TOTAL HGB [facility] <5.7 Normal cholesterol, non-HDL, total 156 MG/DL (CALC) [facility] <130 High cholesterol/HDL ratio, serum, percent 3.0 (calc) [facility] <5.0 Normal LDL cholesterol, serum 137 MG/DL (CALC) [facility] High triglyceride, serum, fasting 93 mg/dL [facility] <150 Normal HDL cholesterol, serum 77 mg/dL [facility] > OR = 50 Normal cholesterol, serum 233 mg/dL [facility] <200 High thyroid stimulating hormone, serum 1.010 u[IU]/mL [facility] 0.450-4.500 hemoglobin A1C, blood, as % of total hemoglobin 5.2 % [facility] 4.8-5.6 lipoprotein, beta, serum, point, quantitative, calculated 108 mg/dL [facility] 0-99 High very low density lipoproteins 18 mg/dL [facility] 5-40 HDL cholesterol, serum 93 mg/dL [facility] >39 triglyceride, serum, random 89 mg/dL [facility] 0-149 cholesterol, serum 219 mg/dL [facility] 100-199 High basophil count, absolute 0.0 x10E3/uL [facility] 0.0-0.2 Eosinophil Absolute Count 0.1 X10E3/UL [facility] 0.0-0.4 monocyte count, blood, automated 0.4 X10E3/UL [facility] 0.1-0.9 lymphocyte count, blood, automated 1.7 X10E3/UL [facility] 0.7-3.1 Absolute Neutrophils 2.7 X10E3/UL [facility] 1.4-7.0 basophils as percent of blood leukocytes 0 % [facility] Not Estab. eosinophils as percent of blood leukocytes 1 % [facility] Not Estab. monocytes as percent of blood leukocytes 9 % [facility] Not Estab. lymphocytes as percent of blood leukocytes 34 % [facility] Not Estab. neutrophils as percent of blood leukocytes 56 % [facility] Not Estab. platelet count 240 X10E3/UL [facility] 539-379 3995/12 /11 red blood cell distribution width 14.2 % [facility] 12.3-15.4 mean corpuscular hemoglobin concentration, RBC 33.2 G/DL [facility] 31.5-35.7 mean corpuscular hemoglobin, RBC 30.8 pg [facility] 26.6-33.0 mean corpuscular volume, RBC 93 fL [facility] 79-97 hematocrit, blood 38.9 % [facility] 34.0-46.6 hemoglobin, blood 12.9 g/dL [facility] 11.1-15.9 erythrocyte (RBC) count 4.19 X10E6/UL [facility] 3.77-5.28 leukocyte count, blood 4.9 X10E3/UL [facility] 3.4-10.8 alanine aminotransferase (SGPT), serum 19 1/L [facility] 0-32 aspartate aminotransferase (SGOT), serum 20 1/L [facility] 0-40 alkaline phosphatase, serum 65 1/L [facility] 39-117 bilirubin, serum, total 1.1 mg/dL [facility] 0.0-1.2 albumin/globulin ratio, serum 2.2 [facility] 1.2-2.2 globulin, serum 2.0 [facility] 1.5-4.5 albumin, serum 4.4 g/dL [facility] 3.5-5.5 protein, total, serum 6.4 g/dL [facility] 6.0-8.5 calcium, serum 8.8 mg/dL [facility] 8.7-10.2 carbon dioxide, venous blood 25 mmol/L [facility] 20-29 chloride, serum 103 mmol/L [facility] 96-106 potassium, serum 3.9 mmol/L [facility] 3.5-5.2 sodium, serum 140 mmol/L [facility] 118-729 7969/12 /11 urea nitrogen/creatinine ratio, serum 20 [facility] 9-23 eGFR if 112 mL/min/{1.73_ m2} [facility] >59 eGFR if not 97 mL/min/{1.73_ m2} [facility] >59 creatinine, serum 0.66 mg/dL [facility] 0.57-1.00 urea nitrogen, blood 13 mg/dL [facility] 6-24 blood glucose, random 98 mg/dL [facility] 65-99 B-type natriuretic peptide 43.9 pg/mL [facility] 0.0-100.0 free thyroxine index 1.9 [facility] 1.2-4.9 triiodothyronine resin uptake 25 % [facility] 24-39 thyroxine, serum, total 7.4 ug/dL [facility] 4.5-12.0 lipoprotein, beta, serum, point, quantitative, calculated 120 mg/dL [facility] 0-99 High very low density lipoproteins 29 mg/dL [facility] 5-40 HDL cholesterol, serum 82 mg/dL [facility] >39 triglyceride, serum, random 143 mg/dL [facility] 0-149 cholesterol, serum 231 mg/dL [facility] 100-199 High platelet count 269 X10E3/UL [facility] 464-320 4824/11 /26 red blood cell distribution width 13.3 % [facility] 12.3-15.4 mean corpuscular hemoglobin concentration, RBC 31.2 G/DL [facility] 31.5-35.7 Low mean corpuscular hemoglobin, RBC 30.7 pg [facility] 26.6-33.0 mean corpuscular volume, RBC 99 fL [facility] 79-97 High hematocrit, blood 40.4 % [facility] 34.0-46.6 hemoglobin, blood 12.6 g/dL [facility] 11.1-15.9 erythrocyte (RBC) count 4.10 X10E6/UL [facility] 3.77-5.28 leukocyte count, blood 4.9 X10E3/UL [facility] 3.4-10.8 alanine aminotransferase (SGPT), serum 17 1/L [facility] 0-32 aspartate aminotransferase (SGOT), serum 17 1/L [facility] 0-40 alkaline phosphatase, serum 77 1/L [facility] 39-117 bilirubin, serum, total 1.0 mg/dL [facility] 0.0-1.2 albumin/globulin ratio, serum 2.0 [facility] 1.2-2.2 globulin, serum 2.1 [facility] 1.5-4.5 albumin, serum 4.2 g/dL [facility] 3.5-5.5 protein, total, serum 6.3 g/dL [facility] 6.0-8.5 calcium, serum 9.1 mg/dL [facility] 8.7-10.2 carbon dioxide, venous blood 25 mmol/L [facility] 18-29 chloride, serum 103 mmol/L [facility] 96-106 potassium, serum 4.5 mmol/L [facility] 3.5-5.2 sodium, serum 142 mmol/L [facility] 246-021 4487/11 /26 urea nitrogen/creatinine ratio, serum 18 [facility] 9-23 eGFR if not 98 mL/min/{1.73_ m2} [facility] >59 creatinine, serum 0.66 mg/dL [facility] 0.57-1.00 urea nitrogen, blood 12 mg/dL [facility] 6-24 blood glucose, random 104 mg/dL [facility] 65-99 High triglyceride, serum, fasting 119 mg/dL [facility] HDL cholesterol, serum 72 mg/dL [facility] LDL cholesterol, serum 60 mg/dL [facility] cholesterol, serum 156 mg/dL [facility] TOTAL NON-HDL-C (LDL VLDL) 108 [facility] alanine aminotransferase (SGPT), serum 20 1/L [facility] aspartate aminotransferase (SGOT), serum 22 1/L [facility] cholesterol/HDL ratio, serum 2.6 [facility] cholesterol, serum 178 mg/dL [facility] triglyceride, target level 150 mg/dL [facility] HDL cholesterol, serum, target level 40 mg/dL [facility] triglyceride, serum, fasting 114 mg/dL [facility] Normal HDL cholesterol, serum 69 mg/dL [facility] Normal LDL cholesterol, serum 86 mg/dL [facility] Normal LDL target level 100 mg/dL [facility] cholesterol, target level 200 mg/dL [facility] TOTAL NON-HDL-C (LDL VLDL) 90 Lacretia Baker NP alanine aminotransferase (SGPT), serum 23 1/L Lacretia Baker NP aspartate aminotransferase (SGOT), serum 17 1/L Lacretia Baker PSYCHOLOGICAL OPERATIONS SPECIALIST cholesterol/HDL ratio, serum 2.4 Lacretia Baker NP cholesterol, serum 156 mg/dL Lacretia Baker NP triglyceride, target level 150 mg/dL Lacretia Baker NP HDL cholesterol, serum, target level 40 mg/dL Zaid Baker PSYCHOLOGICAL OPERATIONS SPECIALIST triglyceride, serum, fasting 116 mg/dL Lacrphilly Baker PSYCHOLOGICAL OPERATIONS SPECIALIST Normal HDL cholesterol, serum 66 mg/dL Lacrphilly Dayels PSYCHOLOGICAL OPERATIONS SPECIALIST Normal LDL cholesterol, serum 67 mg/dL Lacrphilly Baker PSYCHOLOGICAL OPERATIONS SPECIALIST Normal LDL target level 100 mg/dL Lacrphilly Dayels PSYCHOLOGICAL OPERATIONS SPECIALIST cholesterol, target level 200 mg/dL Zaid Dayels PSYCHOLOGICAL OPERATIONS SPECIALIST TOTAL NON-HDL-C (LDL VLDL) [facility] ([facility]), serum 23 1/L [facility] aspartate aminotransferase (SGOT), serum 23 1/L [facility] cholesterol/HDL ratio, serum 3.3 [facility] cholesterol, serum 175 mg/dL [facility] Normal triglyceride, target level 150 mg/dL [facility] HDL cholesterol, serum, target level 40 mg/dL [facility] triglyceride, serum, fasting 77 mg/dL [facility] Normal HDL cholesterol, serum 54 mg/dL [facility] Normal LDL cholesterol, serum 106 mg/dL [facility] High LDL target level 100 mg/dL [facility] cholesterol, target level 200 mg/dL [facility] TOTAL NON-HDL-C (LDL VLDL) 139 [facility] cholesterol/HDL ratio, serum 3.0 [facility] triglyceride, serum, fasting 142 mg/dL [facility] HDL cholesterol, serum 71 mg/dL [facility] LDL cholesterol, serum 111 mg/dL [facility] cholesterol, serum 210 mg/dL [facility] triglyceride, target level 150 mg/dL [facility] HDL cholesterol, serum, target level 40 mg/dL [facility] LDL target level 100 mg/dL [facility] cholesterol, target level 200 mg/dL Radha Rios PSYCHOLOGICAL OPERATIONS SPECIALIST hemoglobin A1C, blood, as % of total hemoglobin 5.2 % OF TOTAL HGB [facility] <5.7 Normal basophils as percent of blood leukocytes 0.5 % [facility] Normal eosinophils as percent of blood leukocytes 3.1 % [facility] Normal monocyte count, blood 8.2 % [facility] Normal lymphocyte count, blood 48.9 % [facility] Normal neutrophils as percent of blood leukocytes 39.3 % [facility] Normal basophils, absolute, manual 22 cells/mcL [facility] 0-200 Normal eosinophils, absolute, manual 133 cells/mcL [facility] 15-500 Normal monocytes, absolute, manual 353 cells/mcL [facility] 200-950 Normal lymphocytes, absolute 2103 CELLS/UL [facility] 850-3900 Normal Absolute Neutrophil count 1690 cells/mcL [facility] 3656-3332 Normal platelet count 225 THOUSAND/UL [facility] 140-400 Normal red blood cell distribution width 13.1 % [facility] 11.0-15.0 Normal mean corpuscular hemoglobin concentration, RBC 35.3 G/DL [facility] 32.0-36.0 Normal mean corpuscular hemoglobin, RBC 31.7 pg [facility] 27.0-33.0 Normal mean corpuscular volume, RBC 89.8 fL [facility] 80.0-100.0 Normal hematocrit, blood 37.2 % [facility] 35.0-45.0 Normal hemoglobin electrophoresis, blood 13.1 [facility] 11.7-15.5 Normal erythrocyte (RBC) count 4.14 MILLION/UL [facility] 3.80-5.10 Normal leukocyte (white blood cells) count, blood 4.3 THOUSAND/UL [facility] 3.8-10.8 Normal alanine aminotransferase (SGPT), serum 16 1/L [facility] 6-40 Normal aspartate aminotransferase (SGOT), serum 15 1/L [facility] 10-35 Normal alkaline phosphatase, serum 67 1/L [facility] 33-130 Normal bilirubin, serum, total 1.0 mg/dL [facility] 0.2-1.2 Normal albumin/globulin ratio, serum 2.0 (calc) [facility] 1.0-2.1 Normal globulins, serum, total 2.2 G/DL (CALC) [facility] 2.2-3.9 Normal albumin, serum 4.3 g/dL [facility] 3.6-5.1 Normal protein, total, serum 6.5 g/dL [facility] 6.2-8.3 Normal calcium, serum 8.8 mg/dL [facility] 8.6-10.4 Normal carbon dioxide, venous blood 26 mmol/L [facility] 21-33 Normal chloride, serum 101 mmol/L [facility] 98-110 Normal potassium, serum 3.7 mmol/L [facility] 3.5-5.3 Normal sodium, serum 139 mmol/L [facility] 135-146 Normal urea nitrogen/creatinine ratio, serum 10 (calc) [facility] 6-22 Normal Estimated Glomerular Filtration Rate (calc) 121 mL/min/{1.73_ m2} [facility] > OR = 60 Normal creatinine, serum 0.62 mg/dL [facility] 0.50-1.05 Normal urea nitrogen, blood 6 mg/dL [facility] 7-25 Low blood glucose, random 83 mg/dL [facility] 65-99 Normal cholesterol/HDL ratio, serum, percent 3.8 (calc) [facility] < OR = 5.0 Normal LDL cholesterol, serum 99 MG/DL (CALC) [facility] <130 Normal triglyceride, serum, fasting 251 mg/dL [facility] <150 High HDL cholesterol, serum 53 mg/dL [facility] > OR = 46 Normal cholesterol, serum 202 mg/dL [facility] 125-200 High basophils as percent of blood leukocytes 0.4 % [facility] Normal eosinophils as percent of blood leukocytes 1.7 % [facility] Normal monocyte count, blood 7.5 % [facility] Normal lymphocyte count, blood 36.9 % [facility] Normal neutrophils as percent of blood leukocytes 53.5 % [facility] Normal basophils, absolute, manual 18 cells/mcL [facility] 0-200 Normal eosinophils, absolute, manual 78 cells/mcL [facility] 15-500 Normal monocytes, absolute, manual 345 cells/mcL [facility] 200-950 Normal lymphocytes, absolute 1697 CELLS/UL [facility] 850-3900 Normal Absolute Neutrophil count 2461 cells/mcL [facility] 1556-5915 Normal platelet count 239 THOUSAND/UL [facility] 140-400 Normal red blood cell distribution width 13.6 % [facility] 11.0-15.0 Normal mean corpuscular hemoglobin concentration, RBC 34.5 G/DL [facility] 32.0-36.0 Normal mean corpuscular hemoglobin, RBC 31.4 pg [facility] 27.0-33.0 Normal mean corpuscular volume, RBC 91.1 fL [facility] 80.0-100.0 Normal hematocrit, blood 38.3 % [facility] 35.0-45.0 Normal hemoglobin electrophoresis, blood 13.2 [facility] 11.7-15.5 Normal erythrocyte (RBC) count 4.21 MILLION/UL [facility] 3.80-5.10 Normal leukocyte (white blood cells) count, blood 4.6 THOUSAND/UL [facility] 3.8-10.8 Normal alanine aminotransferase (SGPT), serum 24 1/L [facility] 6-40 Normal aspartate aminotransferase (SGOT), serum 18 1/L [facility] 10-35 Normal alkaline phosphatase, serum 80 1/L [facility] 33-115 Normal bilirubin, serum, total 0.7 mg/dL [facility] 0.2-1.2 Normal albumin/globulin ratio, serum 2.1 (calc) [facility] 1.0-2.1 Normal globulins, serum, total 2.2 G/DL (CALC) [facility] 2.2-3.9 Normal albumin, serum 4.7 g/dL [facility] 3.6-5.1 Normal protein, total, serum 6.9 g/dL [facility] 6.2-8.3 Normal calcium, serum 9.6 mg/dL [facility] 8.6-10.2 Normal carbon dioxide, venous blood 25 mmol/L [facility] 21-33 Normal chloride, serum 104 mmol/L [facility] 98-110 Normal potassium, serum 4.7 mmol/L [facility] 3.5-5.3 Normal sodium, serum 141 mmol/L [facility] 135-146 Normal urea nitrogen/creatinine ratio, serum NOT APPLICABLE (calc) [facility] 6-22 Estimated Glomerular Filtration Rate (calc) >60 mL/min/1.73m2 [facility] > OR = 60 Normal creatinine, serum 0.76 mg/dL [facility] 0.59-1.07 Normal urea nitrogen, blood 10 mg/dL [facility] 7-25 Normal blood glucose, random 104 mg/dL [facility] 65-99 High thyroid stimulating hormone, serum 0.97 u[IU]/mL [facility] Normal free thyroxine index 3.1 [facility] 1.4-3.8 Normal thyroxine, serum, total 10.6 ug/dL [facility] 4.5-12.5 Normal triiodothyronine resin uptake 29 % [facility] 22-35 Normal cholesterol/HDL ratio, serum, percent 3.1 (calc) [facility] < OR = 5.0 Normal LDL cholesterol, serum 105 MG/DL (CALC) [facility] <130 Normal triglyceride, serum, fasting 114 mg/dL [facility] <150 Normal HDL cholesterol, serum 60 mg/dL [facility] > OR = 46 Normal cholesterol, serum 188 mg/dL [facility] 125-200 Normal HISTORY OF MEDICATION USE Medication Status Instructions Dates Provider Indications Com [facility] TEENABERNIE ELLIPTA [id number] MCG/INH INHALATION AEROSOL POWDER BREATH ACTIVATED active as directed 03/24 Beatriz Dorman #180, 90 days supply, Prescribed by LUKE LANGE, Filled 06/01/2020 TYLENOL CAPSULE active as needed 08/22 Beatirz Dorman GABAPENTIN 300 MG ORAL CAPSULE active one pill twice a day 08/22 Beatriz Dorman OMEPRAZOLE 40 MG ORAL CAPSULE DELAYED RELEASE active one capsule daily 08/22 Beatriz Dorman PREMARIN CREAM active twice a week 08/22 Beatriz Dorman LAMISIL 250 MG ORAL TABLET active once a day 08/22 Beatriz Dorman hydrochlorothiazide 12.5 mg capsule active TAKE 1 CAPSULE DAILY 12/23 Tianna Keene ASPIRIN ADULT LOW DOSE 81 MG ORAL TABLET DELAYED RELEASE active One Tab By Mouth Daily 08/26 Beatriz Dorman VALTREX 1 GM ORAL TABLET active Take 1 tablet as PRN 08/24 Abigail Nickerson TUMERIC WITH CIRCUMIN active Take 2 a day 12/23 Beatriz Dorman VITAMIN C CAPSULE completed Once a day 12/23 - 08/20 Beatriz Dorman PROAIR HFA AEROSOL SOLUTION active as needed Gavino Peck MUCINEX 600 MG ORAL TABLET EXTENDED RELEASE 12 HOUR completed twice daily - 12/23 Beatriz Dorman TOPROL XL 50 MG ORAL TABLET EXTENDED RELEASE 24 HOUR completed ONE TAB DAILY 07/27 - 08/24 Abigail CUELLODUO RESPICLICK /14 AEROSOL POWDER BREATH ACTIVATED completed as needed - 08/20 Gavino Peck SPIRIVA HANDIHALER 18 MCG INHALATION CAPSULE completed once daily - 08/20 Beatriz Dorman VAGIFEM 10 MCG VAGINAL TABLET completed 1 tab twice a week - 08/20 Beatriz Dorman ASPIRIN ADULT LOW DOSE 81 MG ORAL TABLET DELAYED RELEASE completed One Tab By Mouth Daily - 08/20 Gavino Peck VITAMIN B-12 1000 MCG ORAL TABLET completed One tablet daily - 12/23 Beatriz Dorman BENADRYL 25 MG ORAL CAPSULE active as neede Gavino Cisco ADVIL 200 MG ORAL TABLET completed as needed - 08/20 Beatriz Dorman PROAIR HFA 108 (90 BASE) MCG/ACT INHALATION AEROSOL SOLUTION completed 10/30 - 08/20 Gavino Peck SPIRIVA RESPIMAT 2.5 MCG/ACT INHALATION AEROSOL SOLUTION completed 10/30 - 08/20 Beatriz Dorman ICAPS AREDS FORMULA ORAL TABLET active daily 10/31 Piper Trevino RANEXA 1000 MG ORAL TABLET EXTENDED RELEASE 12 HOUR completed ONE TAB. TWICE DAILY for chronic angina - 10/31 Piper Trevino CYCLOBENZAPRINE HCL 10 MG ORAL TABLET completed every 8 hours - 10/31 Piper Trevino TRAMADOL HCL 50 MG ORAL TABLET completed every 6 hours as needed for pain - 10/31 Piper Trevino VALTREX 500 MG ORAL TABLET completed once daily - 10/31 Piper Trevino LOMOTIL 2.5-0.025 MG ORAL TABLET completed twice daily - 10/31 Piper Trevino RANEXA 500 MG ORAL TABLET EXTENDED RELEASE 12 HOUR completed ONE TAB. TWICE DAILY for chronic angina 01/24 - Channing Leslie MD ASPIRIN 81 MG ORAL TABLET completed ONE TAB. DAILY 01/24 - 10/31 Piper Trevino VAGIFEM 10 MCG VAGINAL TABLET completed TWICE WEEKLY - 10/31 Piper Trevino LAMICTAL 200 MG ORAL TABLET completed ONE TABLET TWICE DAILY - 10/31 Piper Trevino ATORVASTATIN CALCIUM 10 MG ORAL TABLET completed po daily 07/19 - 10/31 Piper Trevino PANTOPRAZOLE SODIUM 40 MG ORAL TABLET DELAYED RELEASE completed 1 tab daily - 08/20 Piper Diaz VITAMIN D3 1000 UNIT ORAL TABLET active ONE TAB BY MOUTH DAILY Gavino Peck CLONAZEPAM 1 MG TABS (CLONAZEPAM) completed 1 tab twice daily - 10/31 Piper Trevino OXYBUTYNIN CHLORIDE ER 10 MG ORAL TABLET EXTENDED RELEASE 24 HOUR completed 1 tab daily - 08/20 Piper Diaz ALPRAZOLAM 0.25 MG ORAL TABLET completed 1/2 tab daily - Piper Trevino LAMOTRIGINE 150 MG ORAL TABLET completed 1 tab twice daily - 08/20 Piper Diaz MELOXICAM 15 MG ORAL TABLET completed 1 daily - 08/20 Piper Diaz TRAZODONE HCL 100 MG ORAL TABLET completed 1 nightly - 08/20 Piper Diaz ZIPRASIDONE HCL CAPS completed 1 daily - 10/31 Piper Trevino DEPAKOTE 500 MG completed ONE TAB AT BEDTIME 11/19 - 08/20 Lam Ritter GEODON 40MG completed ONE TAB AT BEDTIME 11/19 - 08/20 Agustinachris Ritter TAMSULOSIN HCL 0.4 MG ORAL CAPSULE completed daily - 08/20 Bonillatemi Stone LISINOPRIL-HYDROCHL OROTHIAZIDE 20-12.5 MG ORAL TABLET completed daily - 10/31 Piper Trevino CRESTOR 5 MG ORAL TABLET completed ONE TAB. DAILY - 08/20 Lam Ritter TRICOR 145 MG ORAL TABLET completed ONE TAB. DAILY (may substitute if needed - call office) 09/23 - Radha Rios NP IBUPROFEN TABLET completed 1 tablet by mouth daily as needed - Piper Belinda NEURONTIN TABLET completed 1 tablet by mouth twice daily - 08/20 Lam Ritter B-12 TABLET completed 1 tablet by mouth daily as needed - 10/31 Piper Trevino FISH OIL 1000 MG ORAL CAPSULE completed 2 capsules by mouth daily - 10/31 Piper Trevino ALBUTEROL SULFATE NEBU completed daily - 10/31 Piper Trevino PROVENTIL HFA 108 (90 Base) MCG/ACT INHALATION AEROSOL SOLUTION completed as directed - 10/31 Piper Trevino MULTIVITAMINS TABS active 1 tablet by mouth daily Victor M Manacotavo PREMARIN 0.625 MG ORAL TABLET completed 1 tablet by mouth daily - 08/20 Victor M Manacop ALEVE TABLET completed 2-3 tablets by mouth daily - Piper Trevino FLEXERIL 10 MG TABS completed 1 tablet by mouth as needed - 08/20 Aneatris Brown SPIRIVA HANDIHALER 18 MCG INHALATION CAPSULE completed 1 capsule by mouth daily - 10/31 Piper Trevino ADVAIR DISKUS 100-50 MCG/DOSE INHALATION AEROSOL POWDER BREATH ACTIVATED completed 1 puff twice daily - 10/31 Piper Trevino SOCIAL HISTORY Date Observation Value Provider social history E&M Marital Statu s: L andrea with family/friends E thnicity: Smoking History: Tavo tse is a former smoker. Jayesh Conroy social history reviewed E&M jonelle beckett - no changes required Jayesh Conroy seatbelt usage 100 % Abigail goldman physical exercise, f requency, days per week yes Abigail Nickerson caffeine use, averag e drinks per day yes Abigail Nickerson passive cigarette sm lexi exposure no Abigail Nickerson smoking, year quit 2003 Abigail lerner number of years as a smoker less than 10 years Abigail Nickerson smoking history, tot al pack/year 1 pk/day Abigail Nickerson cigarette use yes Abigail hackett smoking status Former smoker Abigail hicks drug use none Joseph Lim In the past 3 months , have you been waking up wanting to use drugs? (CAGE substance use question #4) N Joseph Lim In the past 3 months , have you felt guilty or bad about using drugs? (CAGE substance use question #3) N Joseph Lim In the past 3 months , has anyone annoyed you by telling you to cut down or stop using drugs? (CAGE substance use question #2) N Joseph Lim In the past 3 months , have you felt you should cut down or stop using drugs?(CAGE substance use question #1) N Joseph Lim alcohol use, average drinks per day social basis only Joseph Lim alcohol use yes Joseph Lim social history E&M Marital Statu s: L andrea with family/friends E thnicity: Smoking History: Tavo tse is a former smoker. Joseph Lim social history reviewed E&M revi ewed - no changes required Joseph Lim seatbelt usage 100 % Beatriz aguirre physical exercise, f requency, days per week yes Beatriz Dorman caffeine use, averag e drinks per day yes Beatriz Dorman passive cigarette sm lexi exposure no Beatriz Dorman smoking, year quit 2004 Beatriz simpson number of years as a smoker less than 10 years Beatriz Dorman smoking history, tot al pack/year 1 pk/day Beatriz Dorman cigarette use yes Beatriz mcghee smoking status Former smoker Beatriz goodwin social history E&M Marital Statu s: L andrea with family/friends E thnicity: Smoking History: Tavo tse is a former smoker. Channing Leslie MD social history reviewed E&M revi ewed - no changes required Channing Leslie MD seatbelt usage 100 % [facility] physical exercise, f requency, days per week yes [facility] caffeine use, averag e drinks per day yes [facility] passive cigarette sm lexi exposure no [facility] smoking, year quit 2004 [facility] number of years as a smoker less than 10 years [facility] smoking history, tot al pack/year 1 pk/day [facility] cigarette use yes [facility] smoking status Former smoker [facility] social history E&M Marital Statu s: L andrea with family/friends E thnicity: Smoking History: Tavo tse is a former smoker. Channing Leslie MD social history reviewed E&M revi ewed - no changes required Channing Leslie MD cigarette use yes Germania Kent ms smoking status Former smoker Germania chapmanny social history E&M Marital Statu s: L andrea with family/friends E thnicity: Smoking History: Tavo tse is a former smoker. Channing Leslie MD social history reviewed E&M revi ewed - no changes required Channing Leslie MD social history E&M Marital Statu s: L andrea with family/friends E thnicity: Smoking History: Tavo tse is a former smoker. Channing Leslie MD social history reviewed E&M revi ewed - no changes required Channing Leslie MD seatbelt usage 100 % Abigail goldman physical exercise, f requency, days per week yes Abigail Nickerson alcohol counseling no Abigail lerner In the past 3 months , have you been waking up wanting to use drugs? (CAGE substance use question #4) N Abigail Nickerson In the past 3 months , have you felt guilty or bad about using drugs? (CAGE substance use question #3) N Abigail Nickerson In the past 3 months , has anyone annoyed you by telling you to cut down or stop using drugs? (CAGE substance use question #2) N Abigail Nickerson In the past 3 months , have you felt you should cut down or stop using drugs?(CAGE substance use question #1) N Abigail Nickerson alcohol use, average drinks per day social basis only Abigail Nickerson alcohol use yes Abigail obrien caffeine use, averag e drinks per day yes Abigail Nickerson drug use none Abigail obrien passive cigarette sm lexi exposure no Abigail Nickerson smoking status Former smoker Abigail hicks social history reviewed E&M revi ewed - no changes required Channing Leslie MD seatbelt usage 100 % Abigailjudson Noblesunshine goldman physical exercise, f requency, days per week yes Abigail Nickerson alcohol counseling no Abigail Michael lerner In the past 3 months , have you been waking up wanting to use drugs? (CAGE substance use question #4) N Abigail Nickerson In the past 3 months , have you felt guilty or bad about using drugs? (CAGE substance use question #3) N Abigail Nickerson In the past 3 months , has anyone annoyed you by telling you to cut down or stop using drugs? (CAGE substance use question #2) N Abigail Nickerson In the past 3 months , have you felt you should cut down or stop using drugs?(CAGE substance use question #1) N Abigail Nickerson alcohol use, average drinks per day social basis only Abigail Nickerson alcohol use yes Abigail Geiger micah caffeine use, averag e drinks per day yes Abigail Nickerson drug use none Abigail Geiger micah passive cigarette sm lexi exposure no Abigail Nickerson smoking status Former smoker Channing Leslie MD social history reviewed E&M revi ewed - no changes required Channing Leslie MD seatbelt usage 100 % Beatriz Leslietonoervin aguirre physical exercise, f requency, days per week yes Beatriz Lakia alcohol counseling no Baetriz Harris calvin In the past 3 months , have you been waking up wanting to use drugs? (CAGE substance use question #4) N Beatriz Francogreer In the past 3 months , have you felt guilty or bad about using drugs? (CAGE substance use question #3) N Beatriz Francogreer In the past 3 months , has anyone annoyed you by telling you to cut down or stop using drugs? (CAGE substance use question #2) N Beatriz Francogreer In the past 3 months , have you felt you should cut down or stop using drugs?(CAGE substance use question #1) N Beatriz Lakia alcohol use, average drinks per day social basis only Beatriz Lakia alcohol use yes Beatriz Linda catalan caffeine use, averag e drinks per day yes Beatriz Lakia drug use none Beatriz Francosirishajesus alayna passive cigarette sm lexi exposure no Beatriz Francogreer smoking status Former smoker Beatriz Francokranthi goodwin number of grandchildren Channing Leslie MD T aslhey Leslie MD social history reviewed E&M revi ewed - no changes required Channing Leslie MD seatbelt usage 100 % Gavino Cedillo physical exercise, f requency, days per week yes Gavino Peck alcohol counseling no Gavino Peck In the past 3 months , have you been waking up wanting to use drugs? (CAGE substance use question #4) N Gavino Peck In the past 3 months , have you felt guilty or bad about using drugs? (CAGE substance use question #3) N Gavino Peck In the past 3 months , has anyone annoyed you by telling you to cut down or stop using drugs? (CAGE substance use question #2) N Gavino Peck In the past 3 months , have you felt you should cut down or stop using drugs?(CAGE substance use question #1) N GavinoNoemi Peck alcohol use, average drinks per day social basis only GavinoNoemi Peck alcohol use yes Gavino Munguia myrna caffeine use, averag e drinks per day yes GavinoNoemi Peck drug use none Gavino Munguia myrna passive cigarette sm lexi exposure no Gavino Peck smoking status Former smoker Gavino [facility] espinosa number of grandchildren Nanda Madera MD social history reviewed E&M revi ewed - no changes required Nanda Madera MD social history E&M Marital Statu s: L andrea with family/friends E thnicity: Smoking History: Tavo tse is a former smoker. Nanda Madera MD seatbelt usage 100 % Gavino Fadi fischer physical exercise, f requency, days per week yes Gavino Peck alcohol counseling no Gavino Peck In the past 3 months , have you been waking up wanting to use drugs? (CAGE substance use question #4) Ervin Peck In the past 3 months , have you felt guilty or bad about using drugs? (CAGE substance use question #3) Ervin Peck In the past 3 months , has anyone annoyed you by telling you to cut down or stop using drugs? (CAGE substance use question #2) Ervin Peck In the past 3 months , have you felt you should cut down or stop using drugs?(CAGE substance use question #1) Ervin Peck alcohol use, average drinks per day social basis only Gavino Peck alcohol use yes Gavino norris caffeine use, averag e drinks per day yes Gavino Peck drug use none Gavino norris passive cigarette sm lexi exposure no Gavino Peck smoking status Former smoker Gavino Hines social history reviewed E&M revi ewed - no changes required Channing Leslie MD seatbelt usage 100 % Priya Buckley physical exercise, f requency, days per week yes Priya Buckley alcohol counseling no Priyameme leavitt In the past 3 months , have you been waking up wanting to use drugs? (CAGE substance use question #4) N Priyameme Buckley In the past 3 months , have you felt guilty or bad about using drugs? (CAGE substance use question #3) N Priyameme Buclkey In the past 3 months , has anyone annoyed you by telling you to cut down or stop using drugs? (CAGE substance use question #2) N Priyameme Buckley In the past 3 months , have you felt you should cut down or stop using drugs?(CAGE substance use question #1) N Priyameme Buckley alcohol use, average drinks per day social basis only Priyameme Buckley alcohol use yes Priyameme Buckley caffeine use, averag e drinks per day yes Priyameme Buckley drug use none Priya Buckley passive cigarette sm lexi exposure no Priya Buckley smoking status Former smoker Priya Buckley social history reviewed E&M revi ewed - no changes required Channing Leslie MD seatbelt usage 100 % Piper mueller physical exercise, f requency, days per week yes Piper Trevino alcohol counseling no Piper Babin In the past 3 months , have you been waking up wanting to use drugs? (CAGE substance use question #4) N Piper Trevino In the past 3 months , have you felt guilty or bad about using drugs? (CAGE substance use question #3) N Piper Trevino In the past 3 months , has anyone annoyed you by telling you to cut down or stop using drugs? (CAGE substance use question #2) N Piper Trevino In the past 3 months , have you felt you should cut down or stop using drugs?(CAGE substance use question #1) N Piper Trevino alcohol use, average drinks per day social basis only Piper Trevino alcohol use yes Piper Trevino caffeine use, averag e drinks per day yes Piper Trevino drug use none Piper Trevino passive cigarette sm lexi exposure no Piper Trevino smoking status Former smoker Piper Merrillmeme veloz social history reviewed E&M revi ewed - no changes required Channing Leslie MD seatbelt usage 100 % Piper Merrillwarren mueller physical exercise, f requency, days per week yes Piper Trevino alcohol counseling no Piper Curtis Talya In the past 3 months , have you been waking up wanting to use drugs? (CAGE substance use question #4) N Piper Trevino In the past 3 months , have you felt guilty or bad about using drugs? (CAGE substance use question #3) N Piper Trevino In the past 3 months , has anyone annoyed you by telling you to cut down or stop using drugs? (CAGE substance use question #2) N Piper Trevino In the past 3 months , have you felt you should cut down or stop using drugs?(CAGE substance use question #1) N Piper Trevino alcohol use, average drinks per day social basis only Piper Trevino alcohol use yes Piper Trevino caffeine use, averag e drinks per day yes Piper Trevino drug use none Piper Trevino passive cigarette sm lexi exposure no Piper Trevino smoking status Former smoker Piper veloz social history reviewed E&M revi ewed - no changes required Channing Leslie MD seatbelt usage 100 % Piper Diaz physical exercise, f requency, days per week yes Piper Diaz alcohol counseling no Piper goetz In the past 3 months , have you been waking up wanting to use drugs? (CAGE substance use question #4) N Piper Diaz In the past 3 months , have you felt guilty or bad about using drugs? (CAGE substance use question #3) N Piper Diaz In the past 3 months , has anyone annoyed you by telling you to cut down or stop using drugs? (CAGE substance use question #2) N Piper Diaz In the past 3 months , have you felt you should cut down or stop using drugs?(CAGE substance use question #1) N Piper Diaz alcohol use, average drinks per day social basis only Piper Diaz caffeine use, averag e drinks per day yes Piper Diaz drug use none Piper Diaz passive cigarette sm lexi exposure no Piper Diaz smoking status Former smoker Piper Diaz social history reviewed E&M revi ewed - no changes required Channing Leslie MD smoking status Former smoker Lam montelongo quit smoking, stage quit Channing coelho MD social history reviewed E&M reviewed Channing Leslie MD drug use none Channing Leslie MD social history reviewed E&M reviewed Channing Leslie MD drug use no Zaid schmidt PSYCHOLOGICAL OPERATIONS SPECIALIST smoking status former smoker Zaid Ravi faith PSYCHOLOGICAL OPERATIONS SPECIALIST social history reviewed E&M reviewed Zaid Baker PSYCHOLOGICAL OPERATIONS SPECIALIST seatbelt usage 100 % Radha Rios NP alcohol counseling no Radha simental PSYCHOLOGICAL OPERATIONS SPECIALIST In the past 3 months , have you been waking up wanting to use drugs? (CAGE substance use question #4) N Radha Rios IDALIA In the past 3 months , have you felt guilty or bad about using drugs? (CAGE substance use question #3) N Radha Rios PSYCHOLOGICAL OPERATIONS SPECIALIST In the past 3 months , has anyone annoyed you by telling you to cut down or stop using drugs? (CAGE substance use question #2) N Radha Rios PSYCHOLOGICAL OPERATIONS SPECIALIST In the past 3 months , have you felt you should cut down or stop using drugs?(CAGE substance use question #1) N Radha Rios PSYCHOLOGICAL OPERATIONS SPECIALIST passive cigarette sm lexi exposure no Radha Rios IDALIA drug use no Radha Rios IDALIA smoking history, tot al pack/year 1 pk/day Radha Rios IDALIA smoking, year quit 2004 Radha Bowling kamille FRIEDMAN smoking status former smoker Radha Rios IDALIA social history reviewed E&M reviewed Channing Leslie MD drug use none Channing Leslie MD social history reviewed E&M reviewed Channing Leslie MD quit smoking, stage quit Timothy weston RN social history reviewed E&M reviewed Timothy Armstrong RN social history E&M Marital Statu s: L andrea with family/friends E thnicity: Timothy Armstrong RN social history reviewed E&M reviewed Timothy Armstrong RN physical exercise, f requency, days per week yes [employer] caffeine use, averag e drinks per day yes [employer] alcohol use, average drinks per day social basis only [employer] number of years as a smoker less than 10 years [facility] smoking status Quit [employer] FUNCTIONAL STATUS Date Observation Value Provider HRA, CV Assess/Plan, Angina (inactive) Management Plan continue current therapy Jayesh Conroy HRA, CV Assess/Plan, Angina (inactive) Management Plan continue current therapy Channing Leslie MD HRA, CV Assess/Plan, Angina (inactive) Management Plan continue current therapy Channing Leslie MD HRA, CV Assess/Plan, Angina (inactive) Management Plan continue current therapy Channing Leslie MD HRA, CV Assess/Plan, Angina (inactive) Management Plan continue current therapy Nanda Madera MD HRA, CV Assess/Plan, Angina (inactive) Management Plan continue current therapy Channing Leslie MD MENTAL STATUS Date Observation Value Provider assessment of judgme nt and insight E&M Alert and oriented to time, place and person. Mood and affect are normal. Channing Leslie MD assessment of judgme nt and insight E&M Alert and oriented to time, place and person. Mood and affect are normal. Channing Leslie MD assessment of judgme nt and insight E&M Alert and oriented to time, place and person. Mood and affect are normal. Channing Leslie MD assessment of judgme nt and insight E&M Alert and oriented to time, place and person. Mood and affect are normal. Channing Leslie MD assessment of judgme nt and insight E&M Alert and oriented to time, place and person. Mood and affect are normal. Timothy Armstrong RN assessment of judgme nt and insight E&M Alert and oriented to time, place and person. Mood and affect are normal. Timothy Armstrong RN FAMILY HISTORY Family Member Condition Mother Family History Unkno wn Full Sister Family History of Di abetes: Full Sister Family History of Co ronary Artery Disease: Full Sister Family History of Di abetes: Full Sister Family History of Co ronary Artery Disease: Full Sister Family History of Di abetes: INSURANCE PROVIDERS Payer name Policy type / Coverage type [place] [employer] party ID [facility] [id number] 1 [place] [employer] Medicare [id number] ADVANCE DIRECTIVES Name Date DISCUSSED - NO DECISION MADE TREATMENT PLAN Date Name Performer Cardiology follow up Jayesh Conroy Cardiology follow up Jayesh Conroy Cardiology follow up Jayesh Conroy Cardiology follow up Jayesh Conroy Cardiology follow up Jayesh Conroy Cardiology Follow up Joseph C [facility] Follow up : H er updated medication list for this problem includes: Hydrochlorothiazide Caps 12.5mg (Hydrochlorothiazide) ..... Take 1 capsule daily Aspirin Adult Low Dose 81 Mg Oral Tablet Delayed Release (Aspirin) ..... One tab by mouth daily BP today: 160/90 P rior BP: 125/67 (06/23/2019) Prior 10 Yr Risk Heart Disease: N/A (01/23/2012) Labs Reviewed: C reat: 0.66 (06/24/2019) C hol: 219 (06/24/2019) HDL: 93 (06/24/2019) [facility] [place] [facility] Follow up Joseph C [facility] Follow up Joseph C [facility] Channing Leslie MD Cardiology Channing Leslie MD Cardiology Channing Leslie MD Cardiology: B P today: 125/67 P rior BP: 130/90 (12/22/2018) Prior 10 Yr Risk Heart Disease: N/A (01/23/2012) Labs Reviewed: C reat: 0.66 (06/09/2017) C hol: 231 (06/09/2017) HDL: 82 (06/09/2017) Channing Leslie MD Cardiology Channing Leslie MD Cardiology Channing Leslie MD Cardiology Channing Leslie MD Cardiology Channing Leslie MD Cardiology Channing Leslie MD Cardiology Follow up Channing evans MD Cardiology Follow up Channing evans MD Cardiology Follow up Channing evans MD Cardiology follow up Channing evans MD Cardiology follow up Channing evans MD Cardiology follow up Channing evans MD Cardiology follow up Channing evans MD Cardiology followup Channing Leslie MD Cardiology followup Channing Leslie MD Cardiology followup Channing Leslie MD Cardiology followup Channing Leslie MD Cardiology followup Channing Leslie MD Cardiology Follow up Channing evans MD Cardiology Follow up Channing evans MD Cardiology Follow up Channing evans MD Cardiology Follow up Channing evans MD Cardiology Follow up Channing evans MD Cardiology:Followed by pulmonary Channing Leslie MD Cardiology: B P today: 148/88 P rior BP: 143/84 (05/27/2017) Prior 10 Yr Risk Heart Disease: N/A (01/23/2012) Labs Reviewed: C reat: 0.66 (06/09/2017) C hol: 231 (06/09/2017) HDL: 82 (06/09/2017) Channing Leslie MD Cardiology:CHADS score 1. Channing Leslie MD Cardiology Channing Leslie MD Cardiology Nanda Madera MD Cardiology Nanda Madera MD Cardiology:Most like ly developed an episode of afib based on her description. Will put her on low dose beta vidya Toprol XL 50mg daily. Check heart monitor, ischemic workup. Recheck echo to make sure she hasn't had a decline in her LV function. H er updated medication list for this problem includes: Toprol Xl 50 Mg Oral Tablet Extended Release 24 Hour (Metoprolol succinate) ..... One tab daily Aspirin Adult Low Dose 81 Mg Oral Tablet Delayed Release (Aspirin) ..... One tab by mouth daily Nanda Madera MD Cardiology Nanda Madera MD Cardiology Follow up Channing evans MD Cardiology Follow up Channing evans MD Cardiology Follow up Channing evans MD Cardiology Channing Leslie MD Cardiology Channing Leslie MD Cardiology Channing Leslie MD Cardiology Channing Leslie MD Cardiology Channing Leslie MD Cardiology Channing Leslie MD Cardiology Channing Leslie MD Cardiology Channing Leslie MD Cardiology Channing Leslie MD FOLLOW UP: H er updated medication list for this problem includes: Proventil Hfa 108 (90 Base) Mcg/act Aers (Albuterol sulfate) ..... As directed Albuterol Sulfate Nebu (Albuterol sulfate nebu) ..... Daily Advair Diskus 100-50 Mcg/dose Misc (Fluticasone-salmeterol) ..... 1 puff twice daily Spiriva Handihaler 18 Mcg Caps (Tiotropium bromide monohydrate) ..... 1 capsule by mouth daily Pulmonary Functions Reviewed: O 2 sat: 98 (01/24/2015) Channing Leslie MD FOLLOW UP: H er updated medication list for this problem includes: Aspirin 81 Mg Tabs (Aspirin) ..... One tab. daily Lisinopril-hydrochlorothiazide 20-12.5 Mg Tabs (Lisinopril-hydrochlorothiazide) ..... Daily BP today: 136/80 P rior BP: 157/94 (07/19/2014) Prior 10 Yr Risk Heart Disease: N/A (01/23/2012) Labs Reviewed: C reat: 0.62 (09/22/2011) C hol: 156 (08/03/2014) HDL: 72 (08/03/2014) LDL: 60 (08/03/2014) T (08/03/2014) Channing Leslie MD follow up: T he following medications were removed from the medication list: Crestor 5 Mg Tabs (Rosuvastatin calcium) ..... One tab. daily Her updated medication list for this problem includes: Atorvastatin Calcium 10 Mg Tabs (Atorvastatin calcium) ..... Po daily Lisinopril-hydrochlorothiazide 20-12.5 Mg Tabs (Lisinopril-hydrochlorothiazide) ..... Daily Channing Leslie MD follow up: T he following medications were removed from the medication list: Crestor 5 Mg Tabs (Rosuvastatin calcium) ..... One tab. daily Her updated medication list for this problem includes: Atorvastatin Calcium 10 Mg Tabs (Atorvastatin calcium) ..... Po daily Channing Leslie MD follow up: H er updated medication list for this problem includes: Proventil Hfa 108 (90 Base) Mcg/act Aers (Albuterol sulfate) ..... As directed Albuterol Sulfate Nebu (Albuterol sulfate nebu) ..... Daily Advair Diskus 100-50 Mcg/dose Misc (Fluticasone-salmeterol) ..... 1 puff twice daily Spiriva Handihaler 18 Mcg Caps (Tiotropium bromide monohydrate) ..... 1 capsule by mouth daily Pulmonary Functions Reviewed: O 2 sat: 97 (07/19/2014) Channing Leslie MD follow up : H er updated medication list for this problem includes: Lisinopril-hydrochlorothiazide 20-12.5 Mg Tabs (Lisinopril-hydrochlorothiazide) ..... Daily BP today: 131/81 Prior BP: 113/63 (10/20/2012) N uclear Stress Findings: 1. Abnormal myocardial perfusion imaging after vasodilator stress with Regadenoson. 2 . Normal left ventricular systolic function with a calculated ejection fraction of 55%. 3 . There is a fixed defect involving the inferior wall consistent with scar tissue. GC (10/02/2011) H CT: 37.2 (09/22/2011) Platelets: 225 THOUSAND/UL (09/22/2011) R BC: 4.14 MILLION/UL (09/22/2011) BUN: 6 (09/22/2011) Creat: 0.62 (09/22/2011) Glucose: 83 (09/22/2011) N a+: 139 (09/22/2011) K+: 3.7 (09/22/2011) Cl: 101 (09/22/2011) SGOT (AST): 22 (11/19/2012) SGPT (ALT): 20 (11/19/2012) TSH: 0.97 (08/18/2009) T4 (total): 10.6 (08/18/2009) Channing Leslie MD follow up : H er updated medication list for this problem includes: Lisinopril-hydrochlorothiazide 20-12.5 Mg Tabs (Lisinopril-hydrochlorothiazide) ..... Daily BP today: 131/81 P rior BP: 113/63 (10/20/2012) Prior 10 Yr Risk Heart Disease: N/A (01/23/2012) Labs Reviewed: C reat: 0.62 (09/22/2011) C hol: 178 (11/19/2012) HDL: 69 (11/19/2012) LDL: 86 (11/19/2012) T (11/19/2012) Channing Leslie MD follow up : H er updated medication list for this problem includes: Crestor 5 Mg Tabs (Rosuvastatin calcium) ..... One tab. daily Lisinopril-hydrochlorothiazide 20-12.5 Mg Tabs (Lisinopril-hydrochlorothiazide) ..... Daily BP today: 131/81 Prior BP: 113/63 (10/20/2012) N uclear Stress Findings: 1. Abnormal myocardial perfusion imaging after vasodilator stress with Regadenoson. 2 . Normal left ventricular systolic function with a calculated ejection fraction of 55%. 3 . There is a fixed defect involving the inferior wall consistent with scar tissue. GC (10/02/2011) C HOL: 178 (11/19/2012) LDL: 86 (11/19/2012) HDL: 69 (11/19/2012) T (11/19/2012) H CT: 37.2 (09/22/2011) Platelets: 225 THOUSAND/UL (09/22/2011) R BC: 4.14 MILLION/UL (09/22/2011) BUN: 6 (09/22/2011) Creat: 0.62 (09/22/2011) Glucose: 83 (09/22/2011) N a+: 139 (09/22/2011) K+: 3.7 (09/22/2011) Cl: 101 (09/22/2011) TSH: 0.97 (08/18/2009) T4 (total): 10.6 (08/18/2009) Channing Leslie MD Lipid clinic: H er updated medication list for this problem includes: Crestor 5 Mg Tabs (Rosuvastatin calcium) ..... One tab. daily Patient presents for lipid management clinic. She states she has been tolerating her medications without difficulty. She is going to [employer] and is using her eliptical machine at home. Her cholesterol values are at goal. No changes are made to her regimen. She will follow up with Dr. Leslie as scheduled and return to lipid clinic in one year. Naa Barnes NP : H er updated medication list for this problem includes: Lisinopril-hydrochlorothiazide 20-12.5 Mg Tabs (Lisinopril-hydrochlorothiazide) ..... Daily Orders: E KG (CPT-57865) & #13;BP today: 113/63 Prior BP: 125/81 (10/15/2011) N uclear Stress Findings: 1. Abnormal myocardial perfusion imaging after vasodilator stress with Regadenoson. 2 . Normal left ventricular systolic function with a calculated ejection fraction of 55%. 3 . There is a fixed defect involving the inferior wall consistent with scar tissue. GC (10/02/2011) C HOL: 156 (06/11/2012) LDL: 67 (06/11/2012) HDL: 66 (06/11/2012) T (06/11/2012) H CT: 37.2 (09/22/2011) Platelets: 225 THOUSAND/UL (09/22/2011) R BC: 4.14 MILLION/UL (09/22/2011) BUN: 6 (09/22/2011) Creat: 0.62 (09/22/2011) Glucose: 83 (09/22/2011) N a+: 139 (09/22/2011) K+: 3.7 (09/22/2011) Cl: 101 (09/22/2011) TSH: 0.97 (08/18/2009) T4 (total): 10.6 (08/18/2009) Channing Leslie MD : H er updated medication list for this problem includes: Advair Diskus 100-50 Mcg/dose Misc (Fluticasone-salmeterol) ..... 1 puff twice daily Proventil Hfa 108 (90 Base) Mcg/act Aers (Albuterol sulfate) ..... As directed Spiriva Handihaler 18 Mcg Caps (Tiotropium bromide monohydrate) ..... 1 capsule by mouth daily Albuterol Sulfate Nebu (Albuterol sulfate nebu) ..... Daily P ulmonary Functions Reviewed: O 2 sat: 98 (10/20/2012) Channing Leslie MD : H er updated medication list for this problem includes: Crestor 5 Mg Tabs (Rosuvastatin calcium) ..... One tab. daily BP today: 113/63 Prior BP: 125/81 (10/15/2011) C HOL: 156 (06/11/2012) LDL: 67 (06/11/2012) HDL: 66 (06/11/2012) T (06/11/2012) C HOL (goal): 200 (06/11/2012) LDL (goal): 100 (06/11/2012) HDL (goal): 40 (06/11/2012) TG (goal): 150 (06/11/2012) Channing Leslie MD : H er updated medication list for this problem includes: Crestor 5 Mg Tabs (Rosuvastatin calcium) ..... One tab. daily Lisinopril-hydrochlorothiazide 20-12.5 Mg Tabs (Lisinopril-hydrochlorothiazide) ..... Daily BP today: 113/63 Prior BP: 125/81 (10/15/2011) N uclear Stress Findings: 1. Abnormal myocardial perfusion imaging after vasodilator stress with Regadenoson. 2 . Normal left ventricular systolic function with a calculated ejection fraction of 55%. 3 . There is a fixed defect involving the inferior wall consistent with scar tissue. GC (10/02/2011) CHOL: 156 (06/11/2012) LDL: 67 (06/11/2012) HDL: 66 (06/11/2012) T (06/11/2012) H CT: 37.2 (09/22/2011) Platelets: 225 THOUSAND/UL (09/22/2011) R BC: 4.14 MILLION/UL (09/22/2011) BUN: 6 (09/22/2011) Creat: 0.62 (09/22/2011) Glucose: 83 (09/22/2011) N a+: 139 (09/22/2011) K+: 3.7 (09/22/2011) Cl: 101 (09/22/2011) TSH: 0.97 (08/18/2009) T4 (total): 10.6 (08/18/2009) Channing Leslie MD follow up: H er updated medication list for this problem includes: Advair Diskus 100-50 Mcg/dose Misc (Fluticasone-salmeterol) ..... 1 puff twice daily Proventil Hfa 108 (90 Base) Mcg/act Aers (Albuterol sulfate) ..... As directed Spiriva Handihaler 18 Mcg Caps (Tiotropium bromide monohydrate) ..... 1 capsule by mouth daily Albuterol Sulfate Nebu (Albuterol sulfate nebu) ..... Daily Pulmonary Functions Reviewed: O 2 sat: 98 (10/15/2011) Channing Leslie MD follow up: H er updated medication list for this problem includes: Tricor 145 Mg Tabs (Fenofibrate) ..... One tab. daily (may substitute if needed - call office) Channing Leslie MD follow up: B P today: 125/81 P rior BP: 118/84 (09/17/2011) Labs Reviewed: C reat: 0.62 (09/22/2011) C hol: 202 (09/22/2011) HDL: 53 (09/22/2011) LDL: 99 MG/DL (CALC) (09/22/2011) T (09/22/2011) Channing Leslie MD follow up: H er updated medication list for this problem includes: Tricor 145 Mg Tabs (Fenofibrate) ..... One tab. daily (may substitute if needed - call office) BP today: 125/81 Prior BP: 118/84 (09/17/2011) N uclear Stress Findings: 1. Abnormal myocardial perfusion imaging after vasodilator stress with Regadenoson. 2 . Normal left ventricular systolic function with a calculated ejection fraction of 55%. 3 . There is a fixed defect involving the inferior wall consistent with scar tissue. GC (10/02/2011) C HOL: 202 (09/22/2011) LDL: 99 MG/DL (CALC) (09/22/2011) HDL: 53 (09/22/2011) T (09/22/2011) H CT: 37.2 (09/22/2011) Platelets: 225 THOUSAND/UL (09/22/2011) R BC: 4.14 MILLION/UL (09/22/2011) BUN: 6 (09/22/2011) Creat: 0.62 (09/22/2011) Glucose: 83 (09/22/2011) N a+: 139 (09/22/2011) K+: 3.7 (09/22/2011) Cl: 101 (09/22/2011) TSH: 0.97 (08/18/2009) T4 (total): 10.6 (08/18/2009) Channing Leslie MD Chest discomfort: O rders: C OMPREHENSIVE METABOLIC PANEL W/EGFR (33431) C BC (INCLUDES DIFF/PLT) (6399) L IPID PANEL (7600) H EMOGLOBIN A1c (496) Her updated medication list for this problem includes: Advair Diskus 100-50 Mcg/dose Misc (Fluticasone-salmeterol) ..... 1 puff twice daily Proventil Hfa 108 (90 Base) Mcg/act Aers (Albuterol sulfate) ..... As directed Spiriva Handihaler 18 Mcg Caps (Tiotropium bromide monohydrate) ..... 1 capsule by mouth daily Albuterol Sulfate Nebu (Albuterol sulfate nebu) ..... Daily Channing Leslie MD Chest discomfort: O rders: C OMPREHENSIVE METABOLIC PANEL W/EGFR (26652) C BC (INCLUDES DIFF/PLT) (6399) L IPID PANEL (7600) H EMOGLOBIN A1c (496) BP today: 118/84 Prior BP: 136/88 (09/06/2009) N uclear Stress Findings: 1. Bon protocol exercise tolerance test.Moderately impaired functional capacity 2 . Normal left ventricular size and function with a calculated ejection fraction of 49%. 3 . Myocardial scintigraphy is normal without evidence for previous myocardial infarction or reversible ischemia. GC (08/18/2009) C HOL: 188 (08/18/2009) LDL: 105 MG/DL (CALC) (08/18/2009) HDL: 60 (08/18/2009) T (08/18/2009) H CT: 38.3 (08/18/2009) Platelets: 239 THOUSAND/UL (08/18/2009) R BC: 4.21 MILLION/UL (08/18/2009) BUN: 10 (08/18/2009) Creat: 0.76 (08/18/2009) Glucose: 104 (08/18/2009) N a+: 141 (08/18/2009) K+: 4.7 (08/18/2009) Cl: 104 (08/18/2009) TSH: 0.97 (08/18/2009) T4 (total): 10.6 (08/18/2009) Channing Leslie MD routine Channing Leslie MD routine: H er updated medication list for this problem includes: Advair Diskus 100-50 Mcg/dose Misc (Fluticasone-salmeterol) ..... 1 puff twice daily Spiriva Handihaler 18 Mcg Caps (Tiotropium bromide monohydrate) Pulmonary Functions Reviewed: O 2 sat: 100 (08/15/2009) Channing Leslie MD routine: B P today: 150/89 Prior BP: / () Channing Leslie MD routine: B P today: 150/89 Prior BP: / () Channing Leslie MD routine: B P today: 150/89 Channing Leslie MD routine: B P today: 150/89 Prior BP: / () Orders: E KG (CPT-60327) Channing Leslie MD Date Name HEMOGLOBIN A1c LIPID PANEL HEMOGLOBIN A1c CBC (H/H, RBC, INDIC ES, WBC, PLT) THYROID PANEL WITH T SH, 3RD GENERATION LIPID PANEL COMPREHENSIVE METABO LIC PANEL, W/EGFR Stress Regadenoson THYROID PANEL LIPID PANEL CBC (H/H, RBC, INDIC ES, WBC, PLT) COMPREHENSIVE METABO LIC PANEL, W/EGFR B TYPE NATRIURETIC P EPTIDE (BNP) Sleep Study Home CBC (H/H, RBC, INDIC ES, WBC, PLT) THYROID PANEL WITH T SH, 3RD GENERATION LIPID PANEL B TYPE NATRIURETIC P EPTIDE (BNP) COMPREHENSIVE METABO LIC PANEL, W/EGFR DLCO - 67350 FRC - 81157 FVC - 69965 STR - Nuclear Complete Echo [facility] HEMOGLOBIN A1c LIPID PANEL CBC (INCLUDES DIFF/P LT) COMPREHENSIVE METABO LIC PANEL W/EGFR CBC (INCLUDES DIFF/P LT) THYROID PANEL WITH T SH, 3RD GENERATION COMPREHENSIVE METABO LIC PANEL W/EGFR LIPID PANEL HISTORY OF PROCEDURES Procedure Date Procedure Name Provider Procedure Notes S tatus EKG Channing Leslie MD completed EKG Channing Leslie MD completed Regadenoson, 4 units Channing Leslie MD completed Cardiolite, 2 units Channing Leslie MD completed SPECT Images Channing Leslie MD complet ed Stress EKG Channing Leslie MD completed EKG Channing Leslie MD completed SNOMED-CT: 330631120792955 Current Medications Documented Channing Leslie MD completed Stress EKG Esme schmidt MD completed Cardiolite, 2 units Channing Leslie MD completed SPECT Images Nanda Madera MD com pleted FVC / MVV with bronchodilator - 79768 Nanda Madera MD completed BLOOD COUNT HEMOGLOBIN Nanda Madera MD completed FRC - 95754 Nanda Madera MD comp leted SpO2 - 46164 Nanda Madera MD com pleted DLCO - 35806 Nanda Madera MD com pleted [facility] - Tech Channing Leslie MD completed [facility] - Prof Channing Leslie MD completed EKG Nanda Madera MD compl eted SNOMED-CT: [id number] Current Medications Documented Nanda Madera MD completed EKG Channing Leslie MD completed SNOMED-CT: 688440408230267 Current Medications Documented Channing Leslie MD completed SNOMED-CT: 76390175 Physical Exam, Performed: Pulse Exam of Foot Channing Leslie MD completed SNOMED-CT: [id number] Current Medications Documented Channing Leslie MD completed SNOMED-CT: 00018510 Physical Exam, Performed: Pulse Exam of Foot Channing Leslie MD completed SNOMED-CT: 163932560032744 Current Medications Documented Channing Leslie MD completed EKG Channing Leslie MD completed EKG Channing Leslie MD completed EKG Channing Leslie MD completed EKG Channing Leslie MD completed EKG Channing Leslie MD completed
== END 2024-07-31 06:32 | disposition home or self-care (01) ==
LOC: ANHIMG 06:34
PROVIDERS: PCP Family Medicine; Visit Provider Nurse Practitioner
DX: R10.32 Left lower quadrant pain (principal)
CPT/HCPCS: 74177; Q9967

== ENCOUNTER 2024-11-05 13:35 | Outpatient (CLI) | payer BC, MEDICARE, SELFPAY ==
--- NOTE | ~2024-11-05 | MM_ITS ---
EXAMINATION: MM screening [facility] w david HISTORY: Screening TECHNIQUE: Craniocaudal and mediolateral oblique 3-D tomosynthesis images were obtained and synthetic 2-D images were generated. CAD analysis was submitted and interpreted. COMPARISON: Comparison to multiple prior studies sequentially, with oldest reviewed study dated 05/15. BREAST PARENCHYMAL COMPOSITION: Not dense: There are scattered areas of fibroglandular density. FINDINGS: There is no evidence of suspicious mass, calcification, or architectural distortion to sugg est malignancy in either breast. There has been no suspicious interval change. IMPRESSION: 1. No mammographic evidence of malignancy. 2. Recommend routine screening mammography in one year. BI-RADS Category 1: Negative Reviewed, dictated and finalized at location A.
== END 2024-11-05 13:36 | disposition home or self-care (01) ==
LOC: MICIMG 13:37
PROVIDERS: PCP Family Medicine; Visit Provider Obstetrics & Gynecology Gynecology
DX: Z12.31 Encounter for screening mammogram for malignant neoplasm of breast (principal)
CPT/HCPCS: 77063; 77067

== ENCOUNTER 2024-12-18 10:32 | Outpatient (CLI) | payer BC, MEDICARE, SELFPAY ==
--- NOTE | ~2024-12-18 | CT_ITS ---
EXAMINATION: CT diagnostic chest wo con DATE: 12/18/2024 11:02 INDICATION: Cough TECHNIQUE: Computed tomography (CT) of the chest was performed without intravenous contrast. The dose -length product was 230.31 mGy-cm. Automated exposure control and iterative reconstruction technique were employed. COMPARISON: Chest dated 09/25/[address] dated 04/13/2019 FINDINGS: There is significant pleural or pericardial effusion. No thoracic lymphadenopathy. Heart si ze normal. There is atherosclerosis of the aorta and coronary arteries. There is a subtle hyperdensit y in the left kidney, partially visualized, nonspecific. Recommend correlation with CT abdomen withou t and with contrast to exclude underlying mass. Status post cholecystectomy. There are scattered calc ified granulomas in both lungs. No suspicious noncalcified pulmonary nodules. There is emphysema. No endobronchial lesions. No pneumothorax. Mild thoracic spondylosis. Mild levocurvature of the thoracic spine. IMPRESSION: 1. No acute cardiopulmonary disease. 2: Subtle hyperdensity in the left kidney, partially visualized, nonspecific. Recommend correlation with CT abdomen without and with contrast to exclude underlying mass. Reviewed, dictated and finalized at location A. IMPRESSION: 1. No acute cardiopulmonary disease. 2: Subtle hyperdensity in the left kidney, partially visualized, nonspecific. Recommend correlation with CT abdomen without and with contrast to exclude unde rlying mass.
== END 2024-12-18 10:33 | disposition home or self-care (01) ==
LOC: MICIMG 10:34
PROVIDERS: PCP Family Medicine; Visit Provider Nurse Practitioner
DX: R05.9 Cough, unspecified (principal)
CPT/HCPCS: 71250

== ENCOUNTER 2025-01-11 13:22 | Outpatient (CLI) | payer BC, MEDICARE, SELFPAY ==
--- NOTE | ~2025-01-11 | CT_ITS ---
CT of the Abdomen and Pelvis: Indication: Abnormal findings of left kidney Technique: 2.5 mm axial scans were obtained through the abdomen and pelvis prior to and following in travenous administration of 100 cc of Omnipaque 350. Dose reduction technique was used on this scan b y utilizing automated exposure control and iterative reconstruction technique. The dose-length produc t (DLP) was 888.31 mGy-cm. COMPARISON: 07/31/2024 Findings: Scans through the lung bases are unremarkable. Stable hypodense lesion at the inferior tip of the right hepatic lobe. The spleen, pancreas, adrenals and right kidney are within normal limits. Cholecystectomy clips are present. 2 cm left renal cyst p resent, with tiny amount of layering hemorrhage versus calcification. There are atherosclerotic calci fications of the aorta. No lymphadenopathy. No bowel obstruction or bowel wall thickening. There is no evidence to suggest acute appendicitis. Images through the pelvis were performed. Urinary bladder unremarkable. Status post hysterectomy. No pelvic mass. No ascites. There is moderate to advanced degenerative spondylosis of lumbar spine with posterior fixation from L4 to L5. Impression: 2 cm left renal cyst with tiny amount of layering hemorrhage versus calcification. No other significant findings. Reviewed, dictated and finalized at location . Impression: 2 cm left renal cyst with tiny amount of layering hemorrhage versus calcificati on. No other significant findings.
[2025-01-11 13:40] LABS: Estimated Glomerular Filt Rate > 60
== END 2025-01-11 13:23 | disposition home or self-care (01) ==
LOC: MICIMG 13:23
PROVIDERS: PCP Family Medicine; Visit Provider Nurse Practitioner
DX: R93.422 Abnormal radiologic findings on diagnostic imaging of left kidney (principal); N28.1 Cyst of kidney, acquired
CPT/HCPCS: 74178; Q9967